=== PATIENT | female | born 1960 | race American Indian/Alaskan Native ===

== ENCOUNTER 2017-03-12 12:15 | Emergency (ER) | payer SELFPAY ==
[2017-03-12] MEDS ORDERED: PROVENTIL IH ONE (14:49)
[2017-03-12] MEDS ORDERED: DELTASONE PO ONE (14:49)
--- NOTE | 2017-03-12 14:55 | Emergency Department Report ---
ED General Adult HPI - General Chief complaint: Upper Respiratory Infection Stated complaint: FLU LIKE SYMPTOMS Time Seen by Provider: 03/12/17 14:41 Source: patient Mode of arrival: Ambulatory Limitations: No Limitations - History of Present Illness Onset/Timin -: Sudden, week(s) Location: head, chest, back Severity scale (0 -10): 4 Quality: aching Consistency: constant Improves with: none Worsens with: movement, other (activity) Associated Symptoms: cough, fever/chills, headaches, loss of appetite, malaise - Related Data Previous Rx's Medication Instructions Recorded Last Taken Type ALBUTEROL Inhaler [ProAir HFA 2 puff IH QID PRN #1 inhalation 03/12/17 Unknown Rx Inhaler] Azithromycin [Zithromax Z-JUAN] 0 mg PO DAILY #6 tab 03/12/17 Unknown Rx Benzonatate [Tessalon Perles] 100 mg PO Q8HR PRN #30 capsule 03/12/17 Unknown Rx Ibuprofen 800 mg PO TID PRN #30 tablet 03/12/17 Unknown Rx predniSONE [Deltasone] 40 mg PO QDAY #10 tab 03/12/17 Unknown Rx Allergies Allergy/AdvReac Type Severity Reaction Status Date / Time codeine Allergy Rash Verified 03/12/17 12:22 diphenhydramine Allergy Rash Verified 03/12/17 12:22 [From Benadryl] ED Review of Systems ROS: Stated complaint: FLU LIKE SYMPTOMS Other details as noted in HPI Constitutional: chills, fever, malaise Eyes: denies: eye pain, eye discharge, vision change ENT: ear pain, throat pain, congestion Respiratory: cough, wheezing Cardiovascular: denies: chest pain, palpitations Endocrine: no symptoms reported Gastrointestinal: nausea. denies: abdominal pain, vomiting, diarrhea, constipation, hematemesis, melena, hematochezia Genitourinary: denies: urgency, dysuria, discharge Musculoskeletal: back pain. denies: joint swelling, arthralgia Skin: denies: rash, lesions Neurological: headache. denies: numbness, paresthesias, confusion, abnormal gait, vertigo Psychiatric: denies: anxiety, depression Hematological/Lymphatic: denies: easy bleeding, easy bruising ED Past Medical Hx - Past Medical History Hx Hypertension: Yes Additional medical history: Hypothyroidism - Surgical History Past Surgical History?: Yes Additional Surgical History: hysterectomy - Social History Smoking Status: Current Every Day Smoker Substance Use Type: None - Medications Home Medications: Home Medications Medication Instructions Recorded Confirmed Last Taken Type ALBUTEROL Inhaler [ProAir HFA 2 puff IH QID PRN #1 inhalation 03/12/17 Unknown Rx Inhaler] Azithromycin [Zithromax Z-JUAN] 0 mg PO DAILY #6 tab 03/12/17 Unknown Rx Benzonatate [Tessalon Perles] 100 mg PO Q8HR PRN #30 capsule 03/12/17 Unknown Rx Ibuprofen 800 mg PO TID PRN #30 tablet 03/12/17 Unknown Rx predniSONE [Deltasone] 40 mg PO QDAY #10 tab 03/12/17 Unknown Rx ED Physical Exam - General Limitations: No Limitations General appearance: alert - Head Head exam: Present: atraumatic, normocephalic - Eye Eye exam: Present: normal appearance, PERRL, EOMI Pupils: Present: normal accommodation - Expanded ENT Exam Expanded TM/Canal exam: Erythema: Right TM, Canal Tenderness: Right TM Throat exam: Positive: tonsillar erythema (moderate erythema mild swelling no abscess no lesions no exudate, no stridor ), tonsillomegaly, other. Negative: tonsillar exudate, R peritonsillar mass, L peritonsillar mass - Neck Neck exam: Present: normal inspection, full ROM. Absent: tenderness, lymphadenopathy, thyromegaly - Respiratory Respiratory exam: Present: normal lung sounds bilaterally, wheezes, chest wall tenderness. Absent: respiratory distress, rales, rhonchi, stridor - Cardiovascular Cardiovascular Exam: Present: regular rate, normal rhythm, normal heart sounds. Absent: systolic murmur, diastolic murmur, rubs, gallop - GI/Abdominal GI/Abdominal exam: Present: soft, normal bowel sounds. Absent: distended, tenderness, guarding, rebound, rigid, mass, bruit, hernia - Rectal Rectal exam: Present: deferred - Extremities Exam Extremities exam: Present: normal inspection - Back Exam Back exam: Present: normal inspection, full ROM. Absent: tenderness, CVA tenderness (R), CVA tenderness (L), muscle spasm, paraspinal tenderness, vertebral tenderness, rash noted - Neurological Exam Neurological exam: Present: alert, oriented X3, CN II-XII intact, normal gait, reflexes normal - Psychiatric Psychiatric exam: Present: normal affect, normal mood - Skin Skin exam: Present: warm, dry, intact, normal color. Absent: rash ED Course Vital Signs 03/12/17 12:22 Temperature 98.8 F Pulse Rate 91 H Respiratory 20 Rate Blood Pressure 149/70 O2 Sat by Pulse 100 Oximetry ED Medical Decision Making - Lab Data Result diagrams: 03/12/17 15:04 03/12/17 15:04 Laboratory Tests 03/12/17 03/12/17 03/12/17 15:04 15:04 15:18 WBC 6.0 RBC 3.18 L Hgb 7.5 L Hct 25.1 L MCV 79 MCH 24 L MCHC 30 RDW 16.1 H Plt Count 358 Lymph % (Auto) 30.0 Slope % (Auto) 6.0 Eos % (Auto) 0.7 Baso % (Auto) 0.9 Lymph # 1.8 Slope # 0.4 Eos # 0.0 Baso # 0.1 Seg Neutrophils % 62.4 Seg Neutrophils # 3.8 Sodium 138 Potassium 4.4 Chloride 99.6 Carbon Dioxide 25 Anion Gap 18 BUN 13 Creatinine 1.0 Estimated GFR > 60 BUN/Creatinine Ratio 13 Glucose 156 H Calcium 9.3 Total Bilirubin 0.20 AST 18 ALT 16 Alkaline Phosphatase 50 Total Protein 7.0 Albumin 4.4 Albumin/Globulin Ratio 1.7 Urine Color Yellow Urine Turbidity Clear Urine pH 5.0 Ur Specific Pinson 1.019 Urine Protein <15 mg/dl Urine Glucose (UA) Neg Urine Ketones Neg Urine Blood Neg Urine Nitrite Neg Urine Bilirubin Neg Urine Urobilinogen < 2.0 Ur Leukocyte Esterase Tr Urine WBC (Auto) 2.0 Urine RBC (Auto) 2.0 U Epithel Cells (Auto) 2.0 Urine Mucus Few - Radiology Data Radiology results: report reviewed, image reviewed normal chest xray no infiltrate no opacities - Medical Decision Making Patient is a 56-year-old [place] female who presents for cough fever chills generalized malaise and nausea without vomiting headache , head and chest congestion and right ear pain 1 week, cough productive thick yellow-green , confirms family member with pneumonia patient states some symptoms are exacerbated by activityj, exam: Patient appears ill. Uncomfortable denies chest pain at this time there is no shortness of breath ENT exam right sided TM erythema and pain nose boggy no polyps no obstruction clear postnasal drip , pharynx moderate erythema, no lesions no exudate mild swelling no tonsillar abscess stridor lungs mild expiratory wheezing no respiratory distress s or muscle use abdomen soft nontender no rebound no fluid shift no bruits no hernia no CVA tenderness with subjective back pain with note cxr: normal , cmp: normal , cbc: h/h 7.5 / 25.5 pt state hx of anemia unknown type , ua: normal , Plan: albuterol neb, prednisone, zpack, cheratussin, ibuprofen pt will follow up with Dr. Castellon for follow and follow up with possible anemia , pt is currently a/o x 3 ambulatory gait steady through entire ed without increased sob or wheezing pt for dc to self in stable condtion at this time. Critical care attestation.: If time is entered above; I have spent that time in minutes in the direct care of this critically ill patient, excluding procedure time. ED Disposition Clinical Impression: Bronchitis URI (upper respiratory infection) Qualifiers: URI type: unspecified viral URI Qualified Code(s): J06.9 - Acute upper respiratory infection, unspecified; B97.89 - Other viral agents as the cause of diseases classified elsewhere; B97.89 - Other viral agents as the cause of diseases classified elsewhere Disposition: DC-01 TO HOME OR SELFCARE Is pt being admited?: No Does the pt Need Aspirin: No Condition: Good Instructions: Chronic Bronchitis (ED) Prescriptions: ALBUTEROL Inhaler [ProAir HFA Inhaler] 2 puff IH QID PRN #1 inhalation PRN Reason: Shortness Of Breath Azithromycin [Zithromax Z-JUAN] 0 mg PO DAILY #6 tab Benzonatate [Tessalon Perles] 100 mg PO Q8HR PRN #30 capsule PRN Reason: Cough Ibuprofen 800 mg PO TID PRN #30 tablet PRN Reason: pain and fever predniSONE [Deltasone] 40 mg PO QDAY #10 tab Referrals: JODI MOSER MD [Primary Care Provider] - 3-5 Days Forms: Work/School Release Form(ED) Time of Disposition: 16:56
--- NOTE | 2017-03-12 15:14 | XRay Report ---
ROUTINE CHEST, TWO VIEWS: HISTORY: Productive cough. The trachea, heart, mediastinal contour, lung varela and bony thorax are unremarkable. IMPRESSION: Unremarkable chest x-ray.
[2017-03-12 16:00] LABS: Basophils # (Auto) 0.1 K/mm3 (0.0-0.1); Basophils % (Auto) 0.9 % (0.0-1.8); Eosinophils % (Auto) 0.7 % (0.0-4.3); Hematocrit 25.1 % (30.3-42.9); Hemoglobin 7.5 gm/dl (10.1-14.3); Lymphocytes # (Auto) 1.8 K/mm3 (1.2-5.4); Mean Corpuscular HGB Conc 30 % (30-34); Mean Corpuscular Volume 79 fl (79-97); Monocytes # (Auto) 0.4 K/mm3 (0.0-0.8); Platelet Count 358 K/mm3 (140-440); Red Blood Count 3.18 M/mm3 (3.65-5.03); Red Cell Distribution Width 16.1 % (13.2-15.2)
[2017-03-12 16:01] LABS: Bilirubin,Urine NEG (Negative); Blood,Urine NEG (Negative); Color,Urine Yellow (Yellow); Mucus,Urine FEW /HPF; Nitrite,Urine NEG (Negative); Protein,Urine <15 mg/dL mg/dL (Negative); Urobilinogen,Urine < 2.0 mg/dL (<2.0)
[2017-03-12 16:01] LABS: Mean Corpuscular Hemoglobin 24 pg (28-32)
[2017-03-12 16:15] LABS: Alanine Aminotransferase 16 units/L (7-56); Albumin 4.4 g/dL (3.9-5); BUN/Creatinine Ratio 13; Blood Urea Nitrogen 13 mg/dL (7-17); Calcium 9.3 mg/dL (8.4-10.2); Hemolysis Index 0
[2017-03-12 17:03] VITALS: BP 114/73
== END 2017-03-12 17:03 | disposition home or self-care (01) ==
LOC: ED 12:15
DX: J40 Bronchitis, not specified as acute or chronic (principal); J06.9 Acute upper respiratory infection, unspecified; B97.89 Other viral agents as the cause of diseases classified elsewhere; I10 Essential (primary) hypertension; E03.9 Hypothyroidism, unspecified; F17.200 Nicotine dependence, unspecified, uncomplicated; Z88.6 Allergy status to analgesic agent
CPT/HCPCS: 36415; 71046; 80053; 81001; 85025; 94640; 99284; J7512

== ENCOUNTER 2017-03-24 07:54 | Inpatient (IN) | payer OTHER ==
[2017-03-24 08:40] LABS: Basophils # (Auto) 0.1 K/mm3 (0.0-0.1); Eosinophils % (Auto) 0.4 % (0.0-4.3); Hematocrit 23.1 % (30.3-42.9); Hemoglobin 6.9 gm/dl (10.1-14.3); Lymphocytes # (Auto) 1.3 K/mm3 (1.2-5.4); Lymphocytes % (Auto) 17.3 % (13.4-35.0); Mean Corpuscular HGB Conc 30 % (30-34); Mean Corpuscular Volume 75 fl (79-97); Monocytes # (Auto) 0.5 K/mm3 (0.0-0.8); Monocytes % (Auto) 6.6 % (0.0-7.3); Platelet Count 351 K/mm3 (140-440); Red Blood Count 3.08 M/mm3 (3.65-5.03); Red Cell Distribution Width 16.4 % (13.2-15.2)
[2017-03-24 08:47] LABS: Mean Corpuscular Hemoglobin 22 pg (28-32)
--- NOTE | 2017-03-24 09:14 | XRay Report ---
ROUTINE CHEST, TWO VIEWS: HISTORY: Shortness of breath. The trachea, heart, mediastinal contour, lung varela and bony thorax are unremarkable. Given differences in the level of inspiration, no change since 03/12/17. IMPRESSION: Unremarkable chest x-ray.
[2017-03-24 09:46] LABS: BUN/Creatinine Ratio 17; Blood Urea Nitrogen 19 mg/dL (7-17); Calcium 9.5 mg/dL (8.4-10.2); Hemolysis Index 2
--- NOTE | 2017-03-24 10:42 | Emergency Department Report ---
ED Shortness of Breath HPI - General Chief Complaint: Dyspnea/Respdistress Stated Complaint: SOB Time Seen by Provider: 03/24/17 10:05 Source: patient Mode of arrival: Ambulatory Limitations: No Limitations - History of Present Illness Initial Comments: Patient is a 56-year-old female that presents emergency room with complaints of shortness of breath 2 weeks and chest pain 2 days. She states she was seen here on 03/12/2017 for bronchitis and upper respiratory infection and given antibiotics and steroids. She states that she is not feeling any better after outpatient treatment and the chest pain or shortness of breath or worsening. Patient states that she is now having dyspnea on exertion and can only walk small distances without becoming very short of breath. Patient States that the chest pain is substernal and radiates to her back. Patient denies fever and chills. Denies diaphoresis and anxiety.. Patient states she has not smoked for the last 2 weeks but normally smokes about a pack a day. He has a past medical history of hypertension and hypothyroidism however she does not take any medications. MD Complaint: shortness of breath, chest pain, pain with inspiration -: Gradual, week(s) (2 weeks) Radiation: back Severity: severe Pain Scale: 9 Quality: throbbing, sharp Consistency: constant Improves With: rest, bronchodilators Worsens With: lying flat, exertion, movement, coughing, inspiration Context: recent URI Associated Symptoms: chest pain, pain with inspiration, cough, sputum production Treatments Prior to Arrival: none - Related Data Home Oxygen Therapy: No Home Medications Medication Instructions Recorded Confirmed Last Taken No Known Home Medications [No 03/24/17 03/24/17 Unknown Reported Home Medications] Allergies Allergy/AdvReac Type Severity Reaction Status Date / Time codeine Allergy Rash Verified 03/12/17 12:22 diphenhydramine Allergy Rash Verified 03/12/17 12:22 [From Benadryl] ED Review of Systems ROS: Stated complaint: SOB Other details as noted in HPI Comment: All other systems reviewed and negative Constitutional: denies: chills, fever Eyes: denies: eye pain, eye discharge, vision change ENT: denies: ear pain, throat pain Respiratory: cough, shortness of breath, SOB with exertion, SOB at rest. denies : wheezing Cardiovascular: chest pain, dyspnea on exertion. denies: palpitations Endocrine: no symptoms reported Gastrointestinal: denies: abdominal pain, nausea, diarrhea Genitourinary: denies: urgency, dysuria, discharge Musculoskeletal: back pain. denies: joint swelling, arthralgia Skin: denies: rash, lesions Neurological: denies: headache, weakness, paresthesias Psychiatric: denies: anxiety, depression Hematological/Lymphatic: denies: easy bleeding, easy bruising ED Past Medical Hx - Past Medical History Previous Medical History?: Yes Hx Hypertension: Yes Additional medical history: Hypothyroidism - Surgical History Past Surgical History?: Yes Additional Surgical History: hysterectomy - Family History Family history: hypertension - Social History Smoking Status: Current Some Day Smoker Substance Use Type: None - Medications Home Medications: Home Medications Medication Instructions Recorded Confirmed Last Taken Type No Known Home Medications [No 03/24/17 03/24/17 Unknown History Reported Home Medications] ED Physical Exam - General Limitations: No Limitations General appearance: alert, in no apparent distress - Head Head exam: Present: atraumatic, normocephalic - Eye Eye exam: Present: normal appearance - ENT ENT exam: Present: mucous membranes moist - Neck Neck exam: Present: normal inspection - Respiratory Respiratory exam: Present: normal lung sounds bilaterally. Absent: respiratory distress - Cardiovascular Cardiovascular Exam: Present: regular rate, normal rhythm. Absent: systolic murmur, diastolic murmur, rubs, gallop - GI/Abdominal GI/Abdominal exam: Present: soft, normal bowel sounds - Extremities Exam Extremities exam: Present: normal inspection - Back Exam Back exam: Present: normal inspection - Neurological Exam Neurological exam: Present: alert, oriented X3 - Psychiatric Psychiatric exam: Present: normal affect, normal mood - Skin Skin exam: Present: warm, dry, intact, normal color. Absent: rash ED Course Vital Signs 03/24/17 03/24/17 03/24/17 07:58 10:53 11:00 Temperature 97.5 F L Pulse Rate 87 68 73 Respiratory 18 17 21 Rate Blood Pressure 124/70 137/94 O2 Sat by Pulse 99 99 Oximetry 03/24/17 11:16 Temperature Pulse Rate 68 Respiratory 23 Rate Blood Pressure 142/89 O2 Sat by Pulse 99 Oximetry ED Medical Decision Making - Lab Data Result diagrams: 03/24/17 08:17 03/24/17 08:17 - EKG Data -: EKG Interpreted by Ar EKG shows normal: sinus rhythm Rate: normal - EKG Data Interpretation: no acute changes, normal EKG - Radiology Data Radiology results: report reviewed, image reviewed Normal limits chest x-ray - Medical Decision Making Condition is a 56-year-old female presents emergency room with shortness of breath and chest pain. Consulted hospitalist for admission to rule out ACS and this patient has failed outpatient therapy for bronchitis/URI with the patient. Hospitalist agreed to admit. - Differential Diagnosis bronchitis, uri, cp, sob. chf Critical care attestation.: If time is entered above; I have spent that time in minutes in the direct care of this critically ill patient, excluding procedure time. ED Disposition Clinical Impression: Chest pain, Shortness of breath, Bronchitis Disposition: OP ADMIT IP TO THIS HOSP Is pt being admited?: Yes Does the pt Need Aspirin: No Condition: Serious Time of Disposition: 11:42
[2017-03-24] MEDS ORDERED: ASPIRIN PO ONE (11:37)
[2017-03-24 11:39] LABS: Creatine Kinase MB 1.8 ng/mL (0.0-4.0)
[2017-03-24] MEDS ORDERED: ROCEPHIN/NS 1 GM/50 ML 1 GM/50 ML BAG IV ONE (11:41)
[2017-03-24] MEDS ORDERED: cefTRIAXone 1 GM in NACL 0.9% 20 ML IV ONE (12:00)
[2017-03-24] MEDS: TYLENOL PO PRN (15:45)
--- NOTE | 2017-03-24 18:16 | History and Physical Report ---
History of Present Illness Date of examination: 03/24/17 Date of admission: 03/24/17 11:44 Chief complaint: Chief complaint:.cough and wheezing for 2 weeks History of present illness: History of Present Illness: 56-year-old female comes in for increasing shortness of breath of 2 weeks' duration and chest pain of 2 days' duration. Patient also has cough productive of mucoid to yellow sputum. Patient was seen here on 03/12/2017 and was treated as acute bronchitis. No improvement. Has dyspnea on exertion and can walk only short distances. Also chest pain as a substernal which is radiating to the back. No fever no chills Chest pain more on coughing. and with deep inspiration.Also bright red blood per rectum off and on for the last 4 days. No syncope or lightheadedness. Patient attributes it to possible hemorrhoids. No previous episodes of bright red blood per rectum. Past Medical History Previous Medical History?: Yes Hx Hypertension: Yes Additional medical history: Hypothyroidism Surgical History Past Surgical History?: Yes Additional Surgical History: hysterectomy Family History Family history: hypertension Social History Smoking Status: Current Some Day Smoker Substance Use Type: None Medications Home Medications: Review of Systems Stated complaint: SOB Other details as noted in HPI Comment: All other systems reviewed and negative Constitutional: denies: chills, fever Eyes: denies: eye pain, eye discharge, vision change ENT: denies: ear pain, throat pain Respiratory: cough, shortness of breath, SOB with exertion, SOB at rest. denies : wheezing Cardiovascular: chest pain, dyspnea on exertion. denies: palpitations Endocrine: no symptoms reported Gastrointestinal: bright red blood per rectum. Since 4 days Genitourinary: denies: urgency, dysuria, discharge Musculoskeletal: back pain. denies: joint swelling, arthralgia Skin: denies: rash, lesions Neurological: denies: headache, weakness, paresthesias Psychiatric: denies: anxiety, depression Hematological/Lymphatic: denies: easy bleeding, easy bruising Medications and Allergies Allergies Allergy/AdvReac Type Severity Reaction Status Date / Time codeine Allergy Rash Verified 03/12/17 12:22 diphenhydramine Allergy Rash Verified 03/12/17 12:22 [From Benadryl] Home Medications Medication Instructions Recorded Confirmed Last Taken Type No Known Home Medications [No 01/14/18 01/14/18 Unknown History Reported Home Medications] Active Meds: Active Medications Acetaminophen (Tylenol) 650 mg PO Q4H PRN PRN Reason: Pain, Mild (1-3) Last Admin: 03/24/17 15:45 Dose: 650 mg Exam - Constitutional Vitals: Temp Pulse Resp BP Pulse Ox 97.5 F L 81 20 147/75 100 03/24/17 07:58 03/24/17 14:00 03/24/17 13:00 03/24/17 13:00 03/24/17 13:00 General appearance: Present: no acute distress ( uterineis a 50), mild distress , well-nourished - EENT Eyes: Present: PERRL ENT: hearing intact, clear oral mucosa - Neck Neck: Present: supple, normal ROM - Respiratory Respiratory effort: normal Respiratory: bilateral: CTA, rhonchi, wheezing - Cardiovascular Heart rate: 80 Rhythm: regular Heart Sounds: Present: S1 & S2. Absent: rub, click - Extremities Extremities: pulses symmetrical, No edema Peripheral Pulses: within normal limits - Abdominal General gastrointestinal: Present: soft, non-tender, non-distended, normal bowel sounds Female genitourinary: Present: normal - Rectal Rectal Exam: deferred - Integumentary Integumentary: Present: clear, warm, dry - Musculoskeletal Musculoskeletal: gait normal, strength equal bilaterally - Psychiatric Psychiatric: appropriate mood/affect, intact judgment & insight - Neurologic Neurologic: CNII-XII intact, moves all extremities - Allied Health Allied health notes reviewed: nursing, case management Results - Labs CBC & Chem 7: 03/24/17 19:27 03/24/17 08:17 Labs: Laboratory Last Values WBC 7.6 K/mm3 (4.5-11.0) 03/24/17 08:17 RBC 3.08 M/mm3 (3.65-5.03) L 03/24/17 08:17 Hgb 6.9 gm/dl (10.1-14.3) L 03/24/17 08:17 Hct 23.1 % (30.3-42.9) L 03/24/17 08:17 MCV 75 fl (79-97) L 03/24/17 08:17 MCH 22 pg (28-32) L 03/24/17 08:17 MCHC 30 % (30-34) 03/24/17 08:17 RDW 16.4 % (13.2-15.2) H 03/24/17 08:17 Plt Count 351 K/mm3 (140-440) 03/24/17 08:17 Lymph % (Auto) 17.3 % (13.4-35.0) 03/24/17 08:17 [place] % (Auto) 6.6 % (0.0-7.3) 03/24/17 08:17 Eos % (Auto) 0.4 % (0.0-4.3) 03/24/17 08:17 Baso % (Auto) 1.0 % (0.0-1.8) 03/24/17 08:17 Lymph # 1.3 K/mm3 (1.2-5.4) 03/24/17 08:17 [place] # 0.5 K/mm3 (0.0-0.8) 03/24/17 08:17 Eos # 0.0 K/mm3 (0.0-0.4) 03/24/17 08:17 Baso # 0.1 K/mm3 (0.0-0.1) 03/24/17 08:17 Seg Neutrophils % 74.7 % (40.0-70.0) H 03/24/17 08:17 Seg Neutrophils # 5.7 K/mm3 (1.8-7.7) 03/24/17 08:17 D-Dimer 173.61 ng/mlDDU (0-234) 03/24/17 11:09 Sodium 149 mmol/L (137-145) H 03/24/17 08:17 Potassium 4.6 mmol/L (3.6-5.0) 03/24/17 08:17 Chloride 108.5 mmol/L (98-107) H 03/24/17 08:17 Carbon Dioxide 20 mmol/L (22-30) L 03/24/17 08:17 Anion Gap 25 mmol/L 03/24/17 08:17 BUN 19 mg/dL (7-17) H 03/24/17 08:17 Creatinine 1.1 mg/dL (0.7-1.2) 03/24/17 08:17 Estimated GFR > 60 ml/min 03/24/17 08:17 BUN/Creatinine Ratio 17 % 03/24/17 08:17 Glucose 95 mg/dL (65-100) 03/24/17 08:17 Calcium 9.5 mg/dL (8.4-10.2) 03/24/17 08:17 Total Creatine Kinase 141 units/L (30-135) H 03/24/17 11:09 CK-MB (CK-2) 1.8 ng/mL (0.0-4.0) 03/24/17 11:09 CK-MB (CK-2) Rel Index 1.2 (0-4) 03/24/17 11:09 Troponin T < 0.010 ng/mL (0.00-0.029) 03/24/17 11:09 NT-Pro-B Natriuret Pep 168.5 pg/mL (0-900) 03/24/17 11:09 - Imaging and Cardiology EKG: report reviewed (normal sinus rhythm and LVH repolarization abnormalities) Chest x-ray: report reviewed (no acute findings no acute findings) Assessment and Plan Advance Directives: Yes (full code) VTE prophylaxis?: Chemical Plan of care discussed with patient/family: Yes - Patient Problems (1) COPD (chronic obstructive pulmonary disease) with acute bronchitis Current Visit: Yes Status: Acute Plan to address problem: patient started on duo nebs Solu-Medrol and IV Levaquin (2) BRBPR (bright red blood per rectum) Current Visit: Yes Status: Acute Plan to address problem: [id number] she has been having bright red blood per rectum off and on for the last 4 days. She attributes it to hemorrhoids also feels weaker.GI consult requested. Check hemoglobin and hematocrit every 8 hours 3 Protonix IV 40 mg every 12 started. (3) Chest pain Current Visit: Yes Status: Acute Qualifiers: Chest pain type: chest pain on breathing Qualified Code(s): R07.1 - Chest pain on breathing; R07.81 - Pleurodynia Plan to address problem: chest pain probably secondary to pleurisy. Will get Lexiscan because of the age and risk factors (4) HTN (hypertension) Current Visit: Yes Status: Chronic Qualifiers: Hypertension type: essential hypertension Qualified Code(s): I10 - Essential (primary) hypertension Plan to address problem: No Home meds Will start on Losartan 100 mg po qd (5) Hypothyroidism (acquired) Current Visit: Yes Status: Chronic Plan to address problem: patient initiated on Synthroid 125 mcg by mouth daily. Patient not taking Synthroid for 2 weeks. TSH not ordered because it is going to be high. (6) Anemia Current Visit: Yes Status: Chronic Qualifiers: Anemia type: iron deficiency Plan to address problem: check iron levels and B12 and folic acid.transfuse 1 unit of packed red blood . (7) Acute hypernatremia Current Visit: Yes Status: Acute Plan to address problem: mild secondary to volume depletion. Patient encouraged to drink plenty of water. (8) DVT prophylaxis Current Visit: Yes Status: Acute Plan to address problem: Lovenox 40 mg SQ Qd
[2017-03-24] MEDS ORDERED: MILK OF MAGNESIA PO PRN ×2 (19:16→19:23)
[2017-03-24] MEDS ORDERED: DULCOLAX PR PRN ×2 (19:16→19:23)
[2017-03-24] MEDS ORDERED: TYLENOL PO PRN ×2 (19:16→19:23)
[2017-03-24] MEDS ORDERED: ZOFRAN IV PRN (19:16)
[2017-03-24] MEDS ORDERED: NACL 0.9% 500 ML 500 ML IV ONE (19:17)
[2017-03-24] MEDS ORDERED: MORPHINE IV PRN (19:23)
[2017-03-24 19:44] LABS: Hematocrit 22.4 % (30.3-42.9); Hemoglobin 6.7 gm/dl (10.1-14.3)
[2017-03-24] MEDS ORDERED: NACL 0.45% 1000 ML 1,000 ML IV SCH (20:00)
[2017-03-24] MEDS ORDERED: DUONEB *Not for PRN Use IH SCH (20:00)
[2017-03-24] MEDS ORDERED: ROCEPHIN/NS 2 GM/100 ML 2 GM/100 ML BAG IV SCH ×2 (20:00)
[2017-03-24 20:16] LABS: % Iron Saturation 3.76 %; Iron 16 ug/dL (37-170); Total Iron Binding Capacity 425 mcg/dL (250-450); Transferrin 368 mg/dl (192-382)
[2017-03-24] MEDS: DUONEB *Not for PRN Use IH SCH (20:48)
[2017-03-24] MEDS: ZITHROMAX 500 MG in NACL 0.9% 250ML 250 ML IV SCH (22:05)
[2017-03-24] MEDS: LOVENOX SUB-Q SCH (22:06)
[2017-03-24] MEDS: COZAAR PO SCH (22:06)
[2017-03-24] MEDS: PROTONIX IV SCH (22:06)
[2017-03-24] MEDS: MORPHINE IV PRN (22:11)
[2017-03-25] MEDS ORDERED: NACL 0.9% 500 ML 500 ML IV ONE (02:00)
[2017-03-25] MEDS: DUONEB *Not for PRN Use IH SCH ×4 (03:45→22:35)
[2017-03-25] MEDS: SYNTHROID PO SCH (05:38)
[2017-03-25 07:17] LABS: Hematocrit 26.7 % (30.3-42.9); Mean Corpuscular HGB Conc 30 % (30-34); Mean Corpuscular Volume 78 fl (79-97); Platelet Count 320 K/mm3 (140-440); Red Blood Count 3.43 M/mm3 (3.65-5.03); Red Cell Distribution Width 17.7 % (13.2-15.2)
[2017-03-25 07:30] LABS: Mean Corpuscular Hemoglobin 23 pg (28-32)
[2017-03-25 07:37] LABS: Alanine Aminotransferase 31 units/L (7-56); Albumin 4.1 g/dL (3.9-5); BUN/Creatinine Ratio 18; Blood Urea Nitrogen 16 mg/dL (7-17); Calcium 8.5 mg/dL (8.4-10.2); Hemolysis Index 1
[2017-03-25] MEDS: MORPHINE IV PRN ×2 (09:26→10:10)
[2017-03-25] MEDS: APRESOLINE IV PRN (09:31)
[2017-03-25] MEDS: cefTRIAXone 2 GM in NACL 0.9% 20 ML IV SCH (09:33)
[2017-03-25] MEDS: COZAAR PO SCH (09:46)
[2017-03-25 09:52] LABS: Total Cells Counted 100
[2017-03-25 09:53] LABS: Band Neutrophils # (Manual) 0.3 K/mm3; Basophils % (Manual) 0 % (0.0-1.8); Eosinophils % (Manual) 0 % (0.0-4.3); Hypochromasia 1+
[2017-03-25 09:56] LABS: Target Cells Few
[2017-03-25 09:57] LABS: Anisocytosis 1+; Spherocytes Few
[2017-03-25 11:24] LABS: Hematocrit 26.3 % (30.3-42.9); Hemoglobin 8.2 gm/dl (10.1-14.3)
[2017-03-25] MEDS ORDERED: LEXISCAN IV ONE ×2 (11:58→12:06)
[2017-03-25] MEDS ORDERED: ZOFRAN ONE (12:34)
[2017-03-25] MEDS: ZOFRAN IV PRN (12:35)
[2017-03-25] MEDS: PROTONIX IV SCH ×2 (13:44→22:40)
--- NOTE | 2017-03-25 14:28 | Gastroenterology Consultation ---
<HERMESFANYFARHANA Sheppard - Last Filed: 03/25/17 14:47> History of Present Illness - Reason for Consult Consult date: 03/25/17 BRBPR Requesting physician: CHANTALE ARIZA - History of Present Illness Patient is a 56 female with PMH of HTN, hypothyroidism, and a recent upper respiratory infection with bronchitis (03/12/2017) who presented to ED with c/o SOB, CP, and productive cough. Chest x-ray was unremarkable. EKG and cardiac enzymes negative. Stress test results pending for today. HGB was found to be 6.9 on admission. GI has been consulted for BRBPR. This afternoon pt was resting in bed w/o acute distress and family at bedside. She admits to continued mild CP described as a pressure and SOB with exertion. She also admits to intermittent rectal bleeding of dark red blood on TP and in toilet after BMs x 3 weeks. Last BM with rectal bleeding was 2 days ago. No active signs of bleeding overnight or this am. Rectal exam revealed brown stool. No hematemesis or melena. Reports a 12lb wt loss since January. Denies abd pain, N /V, dysphagia, diarrhea, or constipation. Last EGD/colonoscopy approximately 10 years ago in October revealed a peptic ulcer per pt. No hx of liver disease. Takes Aleve or Ibuprofen every other day. Fhx of colon cancer with grandfather diagnosed in his 70s. Past History Past Medical History: hypertension, hypothyroidism Past Surgical History: hysterectomy Social history: smoking Family history: hypertension Medications and Allergies Allergies Allergy/AdvReac Type Severity Reaction Status Date / Time codeine Allergy Rash Verified 03/12/17 12:22 diphenhydramine Allergy Rash Verified 03/12/17 12:22 [From Benadryl] Home Medications Medication Instructions Recorded Confirmed Last Taken Type No Known Home Medications [No 03/24/17 03/24/17 Unknown History Reported Home Medications] Active Meds: Active Medications Acetaminophen (Tylenol) 650 mg PO Q4H PRN PRN Reason: Pain, Mild (1-3) Last Admin: 03/24/17 15:45 Dose: 650 mg Albuterol/Ipratropium (Duoneb *Not For Prn Use*) 1 ampul IH Q6HRT RUBEN Last Admin: 03/25/17 13:58 Dose: 1 ampul Bisacodyl (Dulcolax) 10 mg CA QDAY PRN PRN Reason: Constipation unrelieved by MOM Enoxaparin Sodium (Lovenox) 40 mg SUB-Q QDAY@2200 [facility] Last Admin: 03/24/17 22:06 Dose: 40 mg Hydralazine HCl (Apresoline) 5 mg IV Q30MIN PRN PRN Reason: Hypertension Last Admin: 03/25/17 09:31 Dose: 5 mg Azithromycin 500 mg/ Sodium (Chloride) 250 mls @ 250 mls/hr IV Q24H [facility] Last Admin: 03/24/17 22:05 Dose: 250 mls/hr Ceftriaxone Sodium 2 gm/ (Sodium Chloride) 20 mls @ 20 mls/10 min IV Q24HR [facility] Last Admin: 03/25/17 09:33 Dose: 20 mls/10 min Levothyroxine Sodium (Synthroid) 125 mcg PO DAILY@0600 [facility] Last Admin: 03/25/17 05:38 Dose: 125 mcg Losartan Potassium (Cozaar) 100 mg PO QDAY [facility] Last Admin: 03/25/17 09:46 Dose: Not Given Magnesium Hydroxide (Milk Of Magnesia) 30 ml PO Q4H PRN PRN Reason: Constipation Methylprednisolone Sodium Succinate (Solu-Medrol) 40 mg IV Q8HR [facility] Last Admin: 03/25/17 13:44 Dose: 40 mg Morphine Sulfate (Morphine) 2 mg IV Q4H PRN PRN Reason: Pain, Moderate (4-6) Last Admin: 03/25/17 10:10 Dose: 2 mg Morphine Sulfate (Morphine) 4 mg IV Q4H PRN PRN Reason: Pain , Severe (7-10) Ondansetron HCl (Zofran) 4 mg IV Q8H PRN PRN Reason: N/V unrelieved by Reglan Last Admin: 03/25/17 12:35 Dose: 4 mg Oxycodone/Acetaminophen (Percocet 5/325) 1 tab PO Q6H PRN PRN Reason: Pain, Moderate (4-6) Pantoprazole Sodium (Protonix) 40 mg IV BID [facility] Last Admin: 03/25/17 13:44 Dose: 40 mg Review of Systems - Review of Systems All systems: negative Cardiovascular: chest pain Respiratory: shortness of breath Gastrointestinal: BRBPR Exam - Constitutional Vital Signs: Temp Pulse Resp BP Pulse Ox 99.1 F 89 17 177/111 95 03/25/17 08:43 03/25/17 14:00 03/25/17 14:00 03/25/17 09:31 03/25/17 08:43 General appearance: no acute distress, obese - EENT Eyes: PERRL, EOM intact ENT: hearing intact - Respiratory Respiratory: bilateral: diminished (anterior) - Cardiovascular Rhythm: regular Heart Sounds: Present: S1 & S2 - Gastrointestinal General gastrointestinal: Present: soft, non-tender, non-distended, normal bowel sounds Rectal Exam: stool brown - Integumentary Integumentary: Present: warm, dry - Neurologic Neurological: alert and oriented x3 - Labs CBC & Chem 7: 03/25/17 11:15 03/25/17 06:33 Lab Results: Laboratory Results - last 24 hr 03/24/17 03/24/17 03/24/17 19:27 19:27 19:27 WBC RBC Hgb Hct MCV MCH MCHC RDW Plt Count Add Manual Diff Total Counted Seg Neutrophils % Seg Neuts % (Manual) Band Neutrophils % Lymphocytes % (Manual) Reactive Lymphs % (Man) Monocytes % (Manual) Eosinophils % (Manual) Basophils % (Manual) Metamyelocytes % Myelocytes % Promyelocytes % Blast Cells % Nucleated RBC % Seg Neutrophils # Man Band Neutrophils # Lymphocytes # (Manual) Abs React Lymphs (Man) Monocytes # (Manual) Eosinophils # (Manual) Basophils # (Manual) Metamyelocytes # Myelocytes # Promyelocytes # Blast Cells # WBC Morphology Hypersegmented Neuts Hyposegmented Neuts Hypogranular Neuts Smudge Cells Toxic Granulation Toxic Vacuolation Dohle Bodies Pelger-Huet Anomaly Christopher Rods Platelet Estimate Clumped Platelets Plt Clumps, EDTA Large Platelets Giant Platelets Platelet Satelliting Plt Morphology Comment RBC Morphology Dimorphic RBCs Polychromasia Hypochromasia Poikilocytosis Anisocytosis Microcytosis Macrocytosis Spherocytes Pappenheimer Bodies Sickle Cells Target Cells Tear Drop Cells Ovalocytes Helmet Cells [place] Bodies [place] Rings Josué Cells Bite Cells Crenated Cell Elliptocytes Acanthocytes (Spur) Rouleaux Hemoglobin C Crystals Schistocytes Malaria parasites Rd Bodies Hem Pathologist Commnt Sodium Potassium Chloride Carbon Dioxide Anion Gap BUN Creatinine Estimated GFR BUN/Creatinine Ratio Glucose Calcium Iron 16 L TIBC 425 % Saturation 3.76 Transferrin 368 Total Bilirubin AST ALT Alkaline Phosphatase Troponin T < 0.010 Total Protein Albumin Albumin/Globulin Ratio Vitamin B12 466.1 Blood Type O POSITIVE Antibody Screen Negative Crossmatch See Detail 03/24/17 03/25/17 03/25/17 19:27 06:33 06:33 WBC 16.1 H RBC 3.43 L Hgb 6.7 L 8.0 L Hct 22.4 L 26.7 L MCV 78 L MCH 23 L MCHC 30 RDW 17.7 H Plt Count 320 Add Manual Diff Complete Total Counted 100 Seg Neutrophils % Child Care Education Coordinator Seg Neuts % (Manual) 92.0 H Band Neutrophils % 2.0 Lymphocytes % (Manual) 5.0 L Reactive Lymphs % (Man) 0 Monocytes % (Manual) 1.0 Eosinophils % (Manual) 0 Basophils % (Manual) 0 Metamyelocytes % 0 Myelocytes % 0 Promyelocytes % 0 Blast Cells % 0 Nucleated RBC % Not Reportable Seg Neutrophils # Man 14.8 H Band Neutrophils # 0.3 Lymphocytes # (Manual) 0.8 L Abs React Lymphs (Man) 0.0 Monocytes # (Manual) 0.2 Eosinophils # (Manual) 0.0 Basophils # (Manual) 0.0 Metamyelocytes # 0.0 Myelocytes # 0.0 Promyelocytes # 0.0 Blast Cells # 0.0 WBC Morphology Not Reportable Hypersegmented Neuts Not Reportable Hyposegmented Neuts Not Reportable Hypogranular Neuts Not Reportable Smudge Cells Not Reportable Toxic Granulation Not Reportable Toxic Vacuolation Not Reportable Dohle Bodies Not Reportable Pelger-Huet Anomaly Not Reportable Christopher Rods Not Reportable Platelet Estimate Not Reportable Clumped Platelets Not Reportable Plt Clumps, EDTA Not Reportable Large Platelets Not Reportable Giant Platelets Not Reportable Platelet Satelliting Not Reportable Plt Morphology Comment Not Reportable RBC Morphology Not Reportable Dimorphic RBCs Not Reportable Polychromasia Not Reportable Hypochromasia 1+ Poikilocytosis Not Reportable Anisocytosis 1+ Microcytosis Not Reportable Macrocytosis Not Reportable Spherocytes Few Pappenheimer Bodies Not Reportable Sickle Cells Not Reportable Target Cells Few Tear Drop Cells Not Reportable Ovalocytes Not Reportable Helmet Cells Not Reportable [place] Bodies Not Reportable [place] Rings Not Reportable [place] Cells Not Reportable Bite Cells Not Reportable Crenated Cell Not Reportable Elliptocytes Not Reportable Acanthocytes (Spur) Not Reportable Rouleaux Not Reportable Hemoglobin C Crystals Not Reportable Schistocytes Not Reportable Malaria parasites Not Reportable Rd Bodies Not Reportable Hem Pathologist Commnt No Sodium 140 D Potassium 4.4 Chloride 103.5 Carbon Dioxide 20 L Anion Gap 21 BUN 16 Creatinine 0.9 Estimated GFR > 60 BUN/Creatinine Ratio 18 Glucose 140 H Calcium 8.5 Iron TIBC % Saturation Transferrin Total Bilirubin < 0.20 AST 28 ALT 31 Alkaline Phosphatase 53 Troponin T Total Protein 7.1 Albumin 4.1 Albumin/Globulin Ratio 1.4 Vitamin B12 Blood Type Antibody Screen Crossmatch 03/25/17 03/25/17 03/25/17 06:50 11:15 11:44 WBC RBC Hgb 8.2 L Hct 26.3 L MCV MCH MCHC RDW Plt Count Add Manual Diff Total Counted Seg Neutrophils % Seg Neuts % (Manual) Band Neutrophils % Lymphocytes % (Manual) Reactive Lymphs % (Man) Monocytes % (Manual) Eosinophils % (Manual) Basophils % (Manual) Metamyelocytes % Myelocytes % Promyelocytes % Blast Cells % Nucleated RBC % Seg Neutrophils # Man Band Neutrophils # Lymphocytes # (Manual) Abs React Lymphs (Man) Monocytes # (Manual) Eosinophils # (Manual) Basophils # (Manual) Metamyelocytes # Myelocytes # Promyelocytes # Blast Cells # WBC Morphology Hypersegmented Neuts Hyposegmented Neuts Hypogranular Neuts Smudge Cells Toxic Granulation Toxic Vacuolation Dohle Bodies Pelger-Huet Anomaly Christopher Rods Platelet Estimate Clumped Platelets Plt Clumps, EDTA Large Platelets Giant Platelets Platelet Satelliting Plt Morphology Comment RBC Morphology Dimorphic RBCs Polychromasia Hypochromasia Poikilocytosis Anisocytosis Microcytosis Macrocytosis Spherocytes Pappenheimer Bodies Sickle Cells Target Cells Tear Drop Cells Ovalocytes Helmet Cells [place] Bodies [place] Rings [place] Cells Bite Cells Crenated Cell Elliptocytes Acanthocytes (Spur) Rouleaux Hemoglobin C Crystals Schistocytes Malaria parasites Rd Bodies Hem Pathologist Commnt Sodium Potassium Chloride Carbon Dioxide Anion Gap BUN Creatinine Estimated GFR BUN/Creatinine Ratio Glucose Calcium Iron TIBC % Saturation Transferrin Total Bilirubin AST ALT Alkaline Phosphatase Troponin T < 0.010 < 0.010 Total Protein Albumin Albumin/Globulin Ratio Vitamin B12 Blood Type Antibody Screen Crossmatch Assessment and Plan 1.GI bleed 2.BRBPR 3.anemia 4.COPD with acute bronchitis 5.CP 6.hypothyroidism -chest x-ray unremarkable -EKG and cardiac enzymes negative -stress test -results pending -iron 16 -HGB 8.2-s/p transfusion of 1 unit PRBCs -continue to monitor H/H and transfuse as needed -no active signs of bleeding overnight or this am -hold blood thinning medications -continue PPI -etiology unclear -recommend pt have an EGD/colonoscopy once medically stable (possibly on Saturday pending stress results) -start on clear liquid tomorrow -continue supportive care -apryl follow <YUSEF CHAPIN - Last Filed: 03/26/17 10:22> Medications and Allergies Active Meds: Active Medications Acetaminophen (Tylenol) 650 mg PO Q4H PRN PRN Reason: Pain, Mild (1-3) Last Admin: 03/25/17 15:12 Dose: 650 mg Albuterol/Ipratropium (Duoneb *Not For Prn Use*) 1 ampul IH Q6HRT [facility] Last Admin: 03/26/17 08:25 Dose: Not Given Bisacodyl (Dulcolax) 10 mg CA QDAY PRN PRN Reason: Constipation unrelieved by MOM Enoxaparin Sodium (Lovenox) 40 mg SUB-Q QDAY@2200 [facility] Last Admin: 03/25/17 22:39 Dose: 40 mg Hydralazine HCl (Apresoline) 5 mg IV Q30MIN PRN PRN Reason: Hypertension Last Admin: 03/25/17 09:31 Dose: 5 mg Hydralazine HCl (Apresoline) 50 mg PO Q8HR [facility] Last Admin: 03/26/17 06:04 Dose: 50 mg Azithromycin 500 mg/ Sodium (Chloride) 250 mls @ 250 mls/hr IV Q24H [facility] Last Admin: 03/25/17 22:39 Dose: 250 mls/hr Ceftriaxone Sodium 2 gm/ (Sodium Chloride) 20 mls @ 20 mls/10 min IV Q24HR [facility] Last Admin: 03/25/17 09:33 Dose: 20 mls/10 min Levothyroxine Sodium (Synthroid) 125 mcg PO DAILY@0600 [facility] Last Admin: 03/26/17 06:05 Dose: 125 mcg Losartan Potassium (Cozaar) 100 mg PO QDAY [facility] Last Admin: 03/25/17 09:46 Dose: Not Given Magnesium Hydroxide (Milk Of Magnesia) 30 ml PO Q4H PRN PRN Reason: Constipation Methylprednisolone Sodium Succinate (Solu-Medrol) 40 mg IV Q8HR [facility] Last Admin: 03/26/17 06:05 Dose: 40 mg Morphine Sulfate (Morphine) 2 mg IV Q4H PRN PRN Reason: Pain, Moderate (4-6) Last Admin: 03/25/17 10:10 Dose: 2 mg Morphine Sulfate (Morphine) 4 mg IV Q4H PRN PRN Reason: Pain , Severe (7-10) Ondansetron HCl (Zofran) 4 mg IV Q8H PRN PRN Reason: N/V unrelieved by Lemuel Last Admin: 03/25/17 12:35 Dose: 4 mg Oxycodone/Acetaminophen (Percocet 5/325) 1 tab PO Q6H PRN PRN Reason: Pain, Moderate (4-6) Pantoprazole Sodium (Protonix) 40 mg IV BID [facility] Last Admin: 03/25/17 22:40 Dose: 40 mg Exam - Constitutional Vital Signs: Temp Pulse Resp BP Pulse Ox 98.7 F 73 16 148/79 98 03/26/17 08:51 03/26/17 08:51 03/26/17 08:51 03/26/17 08:51 03/26/17 08:51 - Labs CBC & Chem 7: 03/26/17 03:25 03/25/17 06:33 Lab Results: Laboratory Results - last 24 hr 03/25/17 03/25/17 03/26/17 11:15 11:44 03:25 Hgb 8.2 L 7.9 L Hct 26.3 L 26.1 L Troponin T < 0.010
--- NOTE | 2017-03-25 14:43 | Progress Note ---
Assessment and Plan /BRBPR (bright red blood per rectum) Protonix IV 40 mg every 12 started. -HGB 8.2-s/p transfusion of 1 unit PRBCs -continue to monitor H/H and transfuse as needed -no active signs of bleeding overnight or this am -pt will have an EGD/colonoscopy once medically stable (possibly on Saturday pending stress results) / Anemia Due to GI loss likely check iron levels and B12 and folic acid. s/p transfusion of 1 unit of packed red blood . /COPD (chronic obstructive pulmonary disease) with acute bronchitis patient started on duo nebs Solu-Medrol and IV Levaquin /Chest pain chest pain probably secondary to pleurisy. s/p Lexiscan today /HTN (hypertension) Will cont on Losartan 100 mg po qd /Hypothyroidism (acquired) patient initiated on Synthroid 125 mcg by mouth daily. Patient not taking Synthroid for 2 weeks. /DVT prophylaxis SCD Hospitalist Physical exam: GENERAL: well-developed and obese AAF lying on bed appeared to be in no discomfort. HEENT: Normocephalic. Atraumatic. No conjunctival congestion or icterus. Patient has moist mucous membranes. NECK: Supple. Trachea midline. CHEST/LUNGS: Clear to auscultated bilaterally, breathing nonlabored. No wheezes crackles or rhonchi. HEART/CARDIOVASCULAR: Regular in rate and rhythm. S1 and S2 positive. ABDOMEN: Abdomen is soft, nontender. Patient has normal bowel sounds. SKIN: There is no rash. Warm and dry. NEURO: No focal motor deficit. Follows command. MUSCULOSKELETAL: No joint effusion or tenderness. EXTRIMITY: No edema, no cyanosis or clubbing. PSYCH: Cooperative. Subjective Date of service: 03/25/17 Interval history: Patient seen and examined. Medical records and medication list reviewed. No acute event overnight noted by the RN. No further overt bleeding episode s/p stress test today Discussed plan of care at bedside with patient. Objective - Constitutional Vitals: Vital Signs - 12hr 03/25/17 03/25/17 03/25/17 03:00 03:30 03:36 Temperature 98.3 F 98.4 F 98.4 F Pulse Rate 92 H 80 Pulse Rate [ Bilateral Throughout] Respiratory 20 20 20 Rate Respiratory Rate [Bilateral Throughout] Blood Pressure 130/78 140/77 140/77 O2 Sat by Pulse 97 97 Oximetry 03/25/17 03/25/17 03/25/17 03:47 04:00 04:01 Temperature 98.5 F Pulse Rate 98 H Pulse Rate [ 76 82 Bilateral Throughout] Respiratory 18 Rate Respiratory 16 18 Rate [Bilateral Throughout] Blood Pressure 152/86 O2 Sat by Pulse 96 Oximetry 03/25/17 03/25/17 03/25/17 08:43 09:31 09:39 Temperature 99.1 F Pulse Rate 93 H Pulse Rate [ 88 Bilateral Throughout] Respiratory 16 Rate Respiratory 19 Rate [Bilateral Throughout] Blood Pressure 177/111 177/111 O2 Sat by Pulse 95 Oximetry 03/25/17 03/25/17 13:59 14:00 Temperature Pulse Rate Pulse Rate [ 87 89 Bilateral Throughout] Respiratory Rate Respiratory 18 17 Rate [Bilateral Throughout] Blood Pressure O2 Sat by Pulse Oximetry - Labs CBC & Chem 7: 03/25/17 11:15 03/25/17 06:33 Labs: Abnormal lab results 03/24/17 03/24/17 03/24/17 Range/Units 19:27 19:27 19:27 WBC (4.5-11.0) K/mm3 RBC (3.65-5.03) M/mm3 Hgb 6.7 L (10.1-14.3) gm/dl Hct 22.4 L (30.3-42.9) % MCV (79-97) fl MCH (28-32) pg RDW (13.2-15.2) % Seg Neuts % (Manual) (40.0-70.0) % Lymphocytes % (Manual) (13.4-35.0) % Seg Neutrophils # Man (1.8-7.7) K/mm3 Lymphocytes # (Manual) (1.2-5.4) K/mm3 Carbon Dioxide (22-30) mmol/L Glucose (65-100) mg/dL Iron 16 L (37-170) ug/dL Crossmatch See Detail 03/25/17 03/25/17 03/25/17 Range/Units 06:33 06:33 11:15 WBC 16.1 H (4.5-11.0) K/mm3 RBC 3.43 L (3.65-5.03) M/mm3 Hgb 8.0 L 8.2 L (10.1-14.3) gm/dl Hct 26.7 L 26.3 L (30.3-42.9) % MCV 78 L (79-97) fl MCH 23 L (28-32) pg RDW 17.7 H (13.2-15.2) % Seg Neuts % (Manual) 92.0 H (40.0-70.0) % Lymphocytes % (Manual) 5.0 L (13.4-35.0) % Seg Neutrophils # Man 14.8 H (1.8-7.7) K/mm3 Lymphocytes # (Manual) 0.8 L (1.2-5.4) K/mm3 Carbon Dioxide 20 L (22-30) mmol/L Glucose 140 H (65-100) mg/dL Iron (37-170) ug/dL Crossmatch
[2017-03-25] MEDS: TYLENOL PO PRN (15:12)
[2017-03-25] MEDS ORDERED: MAXIPIME 2 GM in NACL 0.9% 20 ML IV SCH (20:00)
[2017-03-25] MEDS ORDERED: ROCEPHIN/NS 2 GM/100 ML 2 GM/100 ML BAG IV SCH (20:00)
[2017-03-25] MEDS ORDERED: cefTRIAXone 2 GM in NACL 0.9% 20 ML IV SCH (20:00)
[2017-03-25] MEDS: ZITHROMAX 500 MG in NACL 0.9% 250ML 250 ML IV SCH (22:39)
[2017-03-25] MEDS: LOVENOX SUB-Q SCH (22:39)
[2017-03-25] MEDS: APRESOLINE PO SCH (22:39)
[2017-03-26] MEDS: DUONEB *Not for PRN Use IH SCH ×4 (02:25→20:48)
--- NOTE | 2017-03-26 02:56 | Treadmill Report ---
THALLIUM STRESS TEST LEFT VENTRICLE: Left ventricular chamber size is within normal. Perfusion study demonstrates mild breast attenuation artifact, otherwise homogeneous uptake of the tracer in all segments, no significant perfusion defects identified. Gated analysis demonstrates normal left ventricular systolic function, ejection fraction 66%. CONCLUSION: Normal myocardial perfusion study. JOB# [id number] CA/NTS
[2017-03-26 04:20] LABS: Hematocrit 26.1 % (30.3-42.9); Hemoglobin 7.9 gm/dl (10.1-14.3)
[2017-03-26] MEDS: APRESOLINE PO SCH ×3 (06:04→22:40)
[2017-03-26] MEDS: SYNTHROID PO SCH (06:05)
--- NOTE | 2017-03-26 09:37 | Gastroenterology Progress Note ---
Assessment and Plan 1.GI bleed 2.BRBPR 3.anemia 4.COPD with acute bronchitis 5.CP 6.hypothyroidism -chest x-ray unremarkable -EKG and cardiac enzymes negative -stress test negative-EF 66% -iron 16 -HGB 7.9-stable -continue to monitor H/H and transfuse as needed -no active signs of bleeding overnight or this am -hold blood thinning medications -clinically pt is feeling better today with CP resolved and SOB improved -continue PPI -etiology unclear -will schedule for EGD/colonoscopy in am -clear liquids today then NPO after MN -continue supportive care -will follow Subjective Date of service: 03/26/17 Principal diagnosis: BRBPR Interval history: Patient resting in bed. No acute distress noted. Reports having a headache but overall is feeling better today. Denies CP, SOB, or signs of active bleeding overnight or this am. Objective - Constitutional Vitals: Temp Pulse Resp BP Pulse Ox 98.7 F 70 18 143/81 99 03/26/17 04:42 03/26/17 06:04 03/26/17 04:42 03/26/17 06:04 03/26/17 04:42 General appearance: no acute distress, obese - EENT Eyes: PERRL, EOM intact ENT: hearing intact - Respiratory Respiratory: bilateral: diminished (anterior) - Cardiovascular Rhythm: regular Heart Sounds: Present: S1 & S2 - Gastrointestinal General gastrointestinal: Present: soft, non-tender, non-distended, normal bowel sounds - Labs CBC & Chem 7: 03/26/17 03:25 03/25/17 06:33 Labs: Laboratory Results - last 24 hr 03/25/17 03/25/17 03/25/17 06:33 11:15 11:44 Hgb 8.2 L Hct 26.3 L Add Manual Diff Complete Total Counted 100 Seg Neuts % (Manual) 92.0 H Band Neutrophils % 2.0 Lymphocytes % (Manual) 5.0 L Reactive Lymphs % (Man) 0 Monocytes % (Manual) 1.0 Eosinophils % (Manual) 0 Basophils % (Manual) 0 Metamyelocytes % 0 Myelocytes % 0 Promyelocytes % 0 Blast Cells % 0 Nucleated RBC % Not Reportable Seg Neutrophils # Man 14.8 H Band Neutrophils # 0.3 Lymphocytes # (Manual) 0.8 L Abs React Lymphs (Man) 0.0 Monocytes # (Manual) 0.2 Eosinophils # (Manual) 0.0 Basophils # (Manual) 0.0 Metamyelocytes # 0.0 Myelocytes # 0.0 Promyelocytes # 0.0 Blast Cells # 0.0 WBC Morphology Not Reportable Hypersegmented Neuts Not Reportable Hyposegmented Neuts Not Reportable Hypogranular Neuts Not Reportable Smudge Cells Not Reportable Toxic Granulation Not Reportable Toxic Vacuolation Not Reportable Dohle Bodies Not Reportable Pelger-Huet Anomaly Not Reportable Christopher Rods Not Reportable Platelet Estimate Not Reportable Clumped Platelets Not Reportable Plt Clumps, EDTA Not Reportable Large Platelets Not Reportable Giant Platelets Not Reportable Platelet Satelliting Not Reportable Plt Morphology Comment Not Reportable RBC Morphology Not Reportable Dimorphic RBCs Not Reportable Polychromasia Not Reportable Hypochromasia 1+ Poikilocytosis Not Reportable Anisocytosis 1+ Microcytosis Not Reportable Macrocytosis Not Reportable Spherocytes Few Pappenheimer Bodies Not Reportable Sickle Cells Not Reportable Target Cells Few Tear Drop Cells Not Reportable Ovalocytes Not Reportable Helmet Cells Not Reportable [place] Bodies Not Reportable [place] Rings Not Reportable Josué Cells Not Reportable Bite Cells Not Reportable Crenated Cell Not Reportable Elliptocytes Not Reportable Acanthocytes (Spur) Not Reportable Rouleaux Not Reportable Hemoglobin C Crystals Not Reportable Schistocytes Not Reportable Malaria parasites Not Reportable Rd Bodies Not Reportable Hem Pathologist Commnt No Troponin T < 0.010 03/26/17 03:25 Hgb 7.9 L Hct 26.1 L Add Manual Diff Total Counted Seg Neuts % (Manual) Band Neutrophils % Lymphocytes % (Manual) Reactive Lymphs % (Man) Monocytes % (Manual) Eosinophils % (Manual) Basophils % (Manual) Metamyelocytes % Myelocytes % Promyelocytes % Blast Cells % Nucleated RBC % Seg Neutrophils # Man Band Neutrophils # Lymphocytes # (Manual) Abs React Lymphs (Man) Monocytes # (Manual) Eosinophils # (Manual) Basophils # (Manual) Metamyelocytes # Myelocytes # Promyelocytes # Blast Cells # WBC Morphology Hypersegmented Neuts Hyposegmented Neuts Hypogranular Neuts Smudge Cells Toxic Granulation Toxic Vacuolation Dohle Bodies Pelger-Huet Anomaly Christopher Rods Platelet Estimate Clumped Platelets Plt Clumps, EDTA Large Platelets Giant Platelets Platelet Satelliting Plt Morphology Comment RBC Morphology Dimorphic RBCs Polychromasia Hypochromasia Poikilocytosis Anisocytosis Microcytosis Macrocytosis Spherocytes Pappenheimer Bodies Sickle Cells Target Cells Tear Drop Cells Ovalocytes Helmet Cells [place] Bodies [place] Rings Josué Cells Bite Cells Crenated Cell Elliptocytes Acanthocytes (Spur) Rouleaux Hemoglobin C Crystals Schistocytes Malaria parasites Rd Bodies Hem Pathologist Commnt Troponin T
[2017-03-26] MEDS ORDERED: GOLYTELY PO ONE (09:40)
[2017-03-26] MEDS: COZAAR PO SCH (11:40)
[2017-03-26] MEDS: PROTONIX IV SCH ×2 (11:41→22:38)
[2017-03-26] MEDS: TYLENOL PO PRN (11:55)
[2017-03-26] MEDS: cefTRIAXone 2 GM in NACL 0.9% 20 ML IV SCH (11:57)
--- NOTE | 2017-03-26 18:43 | Progress Note ---
Assessment and Plan Assessment and plan: /BRBPR (bright red blood per rectum) Protonix IV 40 mg every 12 started. -HGB 8.2-s/p transfusion of 1 unit PRBCs -continue to monitor H/H and transfuse as needed -no active signs of bleeding overnight or this am -pt will have an EGD/colonoscopy once medically stable (possibly on Saturday pending stress results) / Anemia Due to GI loss likely check iron levels and B12 and folic acid. s/p transfusion of 1 unit of packed red blood . /COPD (chronic obstructive pulmonary disease) with acute bronchitis patient started on duo nebs Solu-Medrol and IV Levaquin /Chest pain chest pain probably secondary to pleurisy. s/p Lexiscan today /HTN (hypertension) Will cont on Losartan 100 mg po qd /Hypothyroidism (acquired) patient initiated on Synthroid 125 mcg by mouth daily. Patient not taking Synthroid for 2 weeks. /DVT prophylaxis SCD Consult cardiology for EGD clearance History Interval history: Patient was seen and examined. Follow-up on current diagnosis/rectal bleeding. Overnight uneventful. Patient denies any shortness breath, nausea/vomiting or severe headaches. Imaging, nursing note, chart, labs and old chart reviewed. Discussed with patient. Patient did not complain of chest pain to me , the pain is most likely epigastric area but it appears she was having chest pain when GI to evaluate her; therefore, GI call me for clearance to do EGD Hospitalist Physical - Physical exam Narrative exam: GEN: WDWN, NAD, AWAKE, ALERT, ORIENTATED 3 HEENT: NCAT, EOMI, PERRL, OP Clear NECK: supple, no adenopathy, no thyromegaly, no JVD CVS/HEART: RRR, NORMAL S1S2, NO JVD, pulses present bilaterally CHEST/LUNGS: CTA B, Symmetrical chest expansion, good air entry bilaterally GI/Abdomen: soft, nondistended, epigastric abdominal pain good bowel sounds, no guarding or rebound /Bladder: no suprapubic tenderness, no CVA or paraspinal tenderness EXT/Skin: no c/c/e, no obvious rash MSK: FROM x 4 Neuro: CN 2-12 grossly intact, no new focal deficits Psych: calm - Constitutional Vitals: Temp Pulse Resp BP Pulse Ox 97.2 F L 67 18 139/76 97 03/26/17 16:56 03/26/17 16:56 03/26/17 16:56 03/26/17 16:56 03/26/17 16:56 General appearance: Present: no acute distress, well-nourished. Absent: mild distress Results - Labs CBC & Chem 7: 03/26/17 03:25 03/25/17 06:33 Labs: Laboratory Last Values WBC 16.1 K/mm3 (4.5-11.0) H 03/25/17 06:33 RBC 3.43 M/mm3 (3.65-5.03) L 03/25/17 06:33 Hgb 7.9 gm/dl (10.1-14.3) L 03/26/17 03:25 Hct 26.1 % (30.3-42.9) L 03/26/17 03:25 MCV 78 fl (79-97) L 03/25/17 06:33 MCH 23 pg (28-32) L 03/25/17 06:33 MCHC 30 % (30-34) 03/25/17 06:33 RDW 17.7 % (13.2-15.2) H 03/25/17 06:33 Plt Count 320 K/mm3 (140-440) 03/25/17 06:33 Lymph % (Auto) 17.3 % (13.4-35.0) 03/24/17 08:17 [place] % (Auto) 6.6 % (0.0-7.3) 03/24/17 08:17 Eos % (Auto) 0.4 % (0.0-4.3) 03/24/17 08:17 Baso % (Auto) 1.0 % (0.0-1.8) 03/24/17 08:17 Lymph # 1.3 K/mm3 (1.2-5.4) 03/24/17 08:17 [place] # 0.5 K/mm3 (0.0-0.8) 03/24/17 08:17 Eos # 0.0 K/mm3 (0.0-0.4) 03/24/17 08:17 Baso # 0.1 K/mm3 (0.0-0.1) 03/24/17 08:17 Add Manual Diff Complete 03/25/17 06:33 Total Counted 100 03/25/17 06:33 Seg Neutrophils % Radiography Technician 03/25/17 06:33 Seg Neuts % (Manual) 92.0 % (40.0-70.0) H 03/25/17 06:33 Band Neutrophils % 2.0 % 03/25/17 06:33 Lymphocytes % (Manual) 5.0 % (13.4-35.0) L 03/25/17 06:33 Reactive Lymphs % (Man) 0 % 03/25/17 06:33 Monocytes % (Manual) 1.0 % (0.0-7.3) 03/25/17 06:33 Eosinophils % (Manual) 0 % (0.0-4.3) 03/25/17 06:33 Basophils % (Manual) 0 % (0.0-1.8) 03/25/17 06:33 Metamyelocytes % 0 % 03/25/17 06:33 Myelocytes % 0 % 03/25/17 06:33 Promyelocytes % 0 % 03/25/17 06:33 Blast Cells % 0 % 03/25/17 06:33 Nucleated RBC % Not Reportable 03/25/17 06:33 Seg Neutrophils # 5.7 K/mm3 (1.8-7.7) 03/24/17 08:17 Seg Neutrophils # Man 14.8 K/mm3 (1.8-7.7) H 03/25/17 06:33 Band Neutrophils # 0.3 K/mm3 03/25/17 06:33 Lymphocytes # (Manual) 0.8 K/mm3 (1.2-5.4) L 03/25/17 06:33 Abs React Lymphs (Man) 0.0 K/mm3 03/25/17 06:33 Monocytes # (Manual) 0.2 K/mm3 (0.0-0.8) 03/25/17 06:33 Eosinophils # (Manual) 0.0 K/mm3 (0.0-0.4) 03/25/17 06:33 Basophils # (Manual) 0.0 K/mm3 (0.0-0.1) 03/25/17 06:33 Metamyelocytes # 0.0 K/mm3 03/25/17 06:33 Myelocytes # 0.0 K/mm3 03/25/17 06:33 Promyelocytes # 0.0 K/mm3 03/25/17 06:33 Blast Cells # 0.0 K/mm3 03/25/17 06:33 WBC Morphology Not Reportable 03/25/17 06:33 Hypersegmented Neuts Not Reportable 03/25/17 06:33 Hyposegmented Neuts Not Reportable 03/25/17 06:33 Hypogranular Neuts Not Reportable 03/25/17 06:33 Smudge Cells Not Reportable 03/25/17 06:33 Toxic Granulation Not Reportable 03/25/17 06:33 Toxic Vacuolation Not Reportable 03/25/17 06:33 Dohle Bodies Not Reportable 03/25/17 06:33 Pelger-Huet Anomaly Not Reportable 03/25/17 06:33 Christopher Rods Not Reportable 03/25/17 06:33 Platelet Estimate Not Reportable 03/25/17 06:33 Clumped Platelets Not Reportable 03/25/17 06:33 Plt Clumps, EDTA Not Reportable 03/25/17 06:33 Large Platelets Not Reportable 03/25/17 06:33 Giant Platelets Not Reportable 03/25/17 06:33 Platelet Satelliting Not Reportable 03/25/17 06:33 Plt Morphology Comment Not Reportable 03/25/17 06:33 RBC Morphology Not Reportable 03/25/17 06:33 Dimorphic RBCs Not Reportable 03/25/17 06:33 Polychromasia Not Reportable 03/25/17 06:33 Hypochromasia 1+ 03/25/17 06:33 Poikilocytosis Not Reportable 03/25/17 06:33 Anisocytosis 1+ 03/25/17 06:33 Microcytosis Not Reportable 03/25/17 06:33 Macrocytosis Not Reportable 03/25/17 06:33 Spherocytes Few 03/25/17 06:33 Pappenheimer Bodies Not Reportable 03/25/17 06:33 Sickle Cells Not Reportable 03/25/17 06:33 Target Cells Few 03/25/17 06:33 Tear Drop Cells Not Reportable 03/25/17 06:33 Ovalocytes Not Reportable 03/25/17 06:33 Helmet Cells Not Reportable 03/25/17 06:33 Tobin-Rafael Gonzalez Bodies Not Reportable 03/25/17 06:33 Ellery Rings Not Reportable 03/25/17 06:33 Josué Cells Not Reportable 03/25/17 06:33 Bite Cells Not Reportable 03/25/17 06:33 Crenated Cell Not Reportable 03/25/17 06:33 Elliptocytes Not Reportable 03/25/17 06:33 Acanthocytes (Spur) Not Reportable 03/25/17 06:33 Rouleaux Not Reportable 03/25/17 06:33 Hemoglobin C Crystals Not Reportable 03/25/17 06:33 Schistocytes Not Reportable 03/25/17 06:33 Malaria parasites Not Reportable 03/25/17 06:33 Rd Bodies Not Reportable 03/25/17 06:33 Hem Pathologist Commnt No 03/25/17 06:33 D-Dimer 173.61 ng/mlDDU (0-234) 03/24/17 11:09 Sodium 140 mmol/L (137-145) D 03/25/17 06:33 Potassium 4.4 mmol/L (3.6-5.0) 03/25/17 06:33 Chloride 103.5 mmol/L (98-107) 03/25/17 06:33 Carbon Dioxide 20 mmol/L (22-30) L 03/25/17 06:33 Anion Gap 21 mmol/L 03/25/17 06:33 BUN 16 mg/dL (7-17) 03/25/17 06:33 Creatinine 0.9 mg/dL (0.7-1.2) 03/25/17 06:33 Estimated GFR > 60 ml/min 03/25/17 06:33 BUN/Creatinine Ratio 18 % 03/25/17 06:33 Glucose 140 mg/dL (65-100) H 03/25/17 06:33 Calcium 8.5 mg/dL (8.4-10.2) 03/25/17 06:33 Iron 16 ug/dL (37-170) L 03/24/17 19:27 TIBC 425 mcg/dL (250-450) 03/24/17 19:27 % Saturation 3.76 % 03/24/17 19:27 Transferrin 368 mg/dl (192-382) 03/24/17 19:27 Total Bilirubin < 0.20 mg/dL (0.1-1.2) 03/25/17 06:33 AST 28 units/L (5-40) 03/25/17 06:33 ALT 31 units/L (7-56) 03/25/17 06:33 Alkaline Phosphatase 53 units/L (35-129) 03/25/17 06:33 Total Creatine Kinase 141 units/L (30-135) H 03/24/17 11:09 CK-MB (CK-2) 1.8 ng/mL (0.0-4.0) 03/24/17 11:09 CK-MB (CK-2) Rel Index 1.2 (0-4) 03/24/17 11:09 Troponin T < 0.010 ng/mL (0.00-0.029) 03/25/17 11:44 NT-Pro-B Natriuret Pep 168.5 pg/mL (0-900) 03/24/17 11:09 Total Protein 7.1 g/dL (6.3-8.2) 03/25/17 06:33 Albumin 4.1 g/dL (3.9-5) 03/25/17 06:33 Albumin/Globulin Ratio 1.4 % 03/25/17 06:33 Vitamin B12 466.1 pg/mL (211-911) 03/24/17 19:27 Blood Type O POSITIVE 03/24/17 19:27 Antibody Screen Negative 03/24/17 19:27 Crossmatch See Detail 03/24/17 19:27
[2017-03-26] MEDS: ZITHROMAX 500 MG in NACL 0.9% 250ML 250 ML IV SCH (19:52)
[2017-03-26] MEDS: ZOFRAN IV PRN (22:39)
[2017-03-27] MEDS: DUONEB *Not for PRN Use IH SCH ×4 (02:38→21:14)
[2017-03-27] MEDS: APRESOLINE PO SCH ×3 (06:00→21:16)
[2017-03-27] MEDS: SYNTHROID PO SCH (06:01)
[2017-03-27] MEDS: TYLENOL PO PRN (06:04)
[2017-03-27 07:03] LABS: Hematocrit 26.8 % (30.3-42.9); Hemoglobin 8.1 gm/dl (10.1-14.3); Mean Corpuscular HGB Conc 30 % (30-34); Mean Corpuscular Volume 77 fl (79-97); Platelet Count 355 K/mm3 (140-440); Red Blood Count 3.48 M/mm3 (3.65-5.03); Red Cell Distribution Width 17.8 % (13.2-15.2)
[2017-03-27 07:11] LABS: INR 0.95 (0.87-1.13)
[2017-03-27 07:18] LABS: Mean Corpuscular Hemoglobin 23 pg (28-32)
[2017-03-27 08:19] LABS: BUN/Creatinine Ratio 20; Blood Urea Nitrogen 18 mg/dL (7-17); Calcium 8.6 mg/dL (8.4-10.2); Hemolysis Index 0
[2017-03-27 10:09] LABS: Total Cells Counted 100
[2017-03-27 10:10] LABS: Anisocytosis 1+; Band Neutrophils # (Manual) 0.4 K/mm3; Basophils % (Manual) 0 % (0.0-1.8); Eosinophils % (Manual) 0 % (0.0-4.3); Hypochromasia 3+
[2017-03-27 10:11] LABS: Spherocytes Few; Target Cells Few
[2017-03-27] MEDS: cefTRIAXone 2 GM in NACL 0.9% 20 ML IV SCH (11:26)
[2017-03-27] MEDS: COZAAR PO SCH (11:26)
[2017-03-27] MEDS: PROTONIX IV SCH (11:26)
--- NOTE | 2017-03-27 11:28 | Consultation ---
History of Present Illness Consult date: 03/27/17 Requesting physician: KIT OLVERA Consult reason: chest pain History of present illness: This is a 56-year-old -[place] female with history of hypertension smoker he's been having for the last several weeks flulike symptoms with shortness of breath with exertion and also chest pain patient was admitted last week for chest pain had a negative chemical stress test. Patient's symptoms of blood per rectum recurred and came back to the hospital with still recurrent chest pain. Patient's chest pain is reproducible with deep palpation which is the complaint she is having and also with deep breathing. Patient has pleurisy. Patient denies any nausea vomiting palpitation. Patient 6 months ago had no shortness of breath or chest pain with exertion. Has been having coughing with sputum production no fever no syncope Past History Past Medical History: hypertension, hypothyroidism Past Surgical History: hysterectomy Social history: smoking Family history: hypertension Medications and Allergies Allergies Allergy/AdvReac Type Severity Reaction Status Date / Time codeine Allergy Rash Verified 03/12/17 12:22 diphenhydramine Allergy Rash Verified 03/12/17 12:22 [From Benadryl] Home Medications Medication Instructions Recorded Confirmed Last Taken Type No Known Home Medications [No 03/24/17 03/24/17 Unknown History Reported Home Medications] Active Meds: Active Medications Acetaminophen (Tylenol) 650 mg PO Q4H PRN PRN Reason: Pain, Mild (1-3) Last Admin: 03/27/17 06:04 Dose: 650 mg Albuterol/Ipratropium (Duoneb *Not For Prn Use*) 1 ampul IH Q6HRT [facility] Last Admin: 03/27/17 09:18 Dose: Not Given Bisacodyl (Dulcolax) 10 mg MT QDAY PRN PRN Reason: Constipation unrelieved by MOM Hydralazine HCl (Apresoline) 5 mg IV Q30MIN PRN PRN Reason: Hypertension Last Admin: 03/25/17 09:31 Dose: 5 mg Hydralazine HCl (Apresoline) 50 mg PO Q8HR [facility] Last Admin: 03/27/17 06:00 Dose: 50 mg Azithromycin 500 mg/ Sodium (Chloride) 250 mls @ 250 mls/hr IV Q24H [facility] Last Admin: 03/26/17 19:52 Dose: 250 mls/hr Ceftriaxone Sodium 2 gm/ (Sodium Chloride) 20 mls @ 20 mls/10 min IV Q24HR [facility] Last Admin: 03/26/17 11:57 Dose: 20 mls/10 min Levothyroxine Sodium (Synthroid) 125 mcg PO DAILY@0600 [facility] Last Admin: 03/27/17 06:01 Dose: 125 mcg Losartan Potassium (Cozaar) 100 mg PO QDAY [facility] Last Admin: 03/26/17 11:40 Dose: 100 mg Magnesium Hydroxide (Milk Of Magnesia) 30 ml PO Q4H PRN PRN Reason: Constipation Methylprednisolone Sodium Succinate (Solu-Medrol) 40 mg IV Q8HR [facility] Last Admin: 03/27/17 06:01 Dose: 40 mg Morphine Sulfate (Morphine) 2 mg IV Q4H PRN PRN Reason: Pain, Moderate (4-6) Last Admin: 03/25/17 10:10 Dose: 2 mg Morphine Sulfate (Morphine) 4 mg IV Q4H PRN PRN Reason: Pain , Severe (7-10) Ondansetron HCl (Zofran) 4 mg IV Q8H PRN PRN Reason: N/V unrelieved by Reglan Last Admin: 03/26/17 22:39 Dose: 4 mg Oxycodone/Acetaminophen (Percocet 5/325) 1 tab PO Q6H PRN PRN Reason: Pain, Moderate (4-6) Pantoprazole Sodium (Protonix) 40 mg IV BID [facility] Last Admin: 03/26/17 22:38 Dose: 40 mg Review of Systems All systems: negative (hpi) Physical Examination Vital Signs Temp Pulse Resp BP Pulse Ox 97.5 F L 87 18 124/70 99 03/24/17 07:58 03/24/17 07:58 03/24/17 07:58 03/24/17 07:58 03/24/17 07:58 General appearance: no acute distress, well-nourished HEENT: Positive: PERRL, Mucus Membranes Moist Neck: Positive: neck supple, trachea midline Cardiac: Positive: Reg Rate and Rhythm, S1/S2, Other (chest pain with palpation chest pain with palpation). Negative: Audible Murmur Lungs: Positive: clear to auscultation, Normal Breath Sounds Neuro: Positive: Grossly Intact Abdomen: Positive: Soft, Active Bowel Sounds. Negative: Tender, Distended Female genitourinary: deferred Skin: Positive: Clear Incision: Cardiac Cath Site Musculoskeletal: No Pain, Normal Range of Motion Extremities: Present: normal. Absent: edema Results 03/27/17 06:20 03/27/17 06:20 Cardiac Enzymes 03/24/17 03/24/17 03/24/17 Range/Units 08:17 08:17 11:09 WBC 7.6 (4.5-11.0) K/mm3 RBC 3.08 L (3.65-5.03) M/mm3 Hgb 6.9 L (10.1-14.3) gm/dl Hct 23.1 L (30.3-42.9) % MCV 75 L (79-97) fl MCH 22 L (28-32) pg MCHC 30 (30-34) % RDW 16.4 H (13.2-15.2) % Plt Count 351 (140-440) K/mm3 Lymph % (Auto) 17.3 (13.4-35.0) % [place] % (Auto) 6.6 (0.0-7.3) % Eos % (Auto) 0.4 (0.0-4.3) % Baso % (Auto) 1.0 (0.0-1.8) % Lymph # 1.3 (1.2-5.4) K/mm3 [place] # 0.5 (0.0-0.8) K/mm3 Eos # 0.0 (0.0-0.4) K/mm3 Baso # 0.1 (0.0-0.1) K/mm3 Add Manual Diff Total Counted Seg Neutrophils % 74.7 H (40.0-70.0) % Seg Neuts % (Manual) (40.0-70.0) % Band Neutrophils % % Lymphocytes % (Manual) (13.4-35.0) % Reactive Lymphs % (Man) % Monocytes % (Manual) (0.0-7.3) % Eosinophils % (Manual) (0.0-4.3) % Basophils % (Manual) (0.0-1.8) % Metamyelocytes % % Myelocytes % % Promyelocytes % % Blast Cells % % Nucleated RBC % Seg Neutrophils # 5.7 (1.8-7.7) K/mm3 Seg Neutrophils # Man (1.8-7.7) K/mm3 Band Neutrophils # K/mm3 Lymphocytes # (Manual) (1.2-5.4) K/mm3 Abs React Lymphs (Man) K/mm3 Monocytes # (Manual) (0.0-0.8) K/mm3 Eosinophils # (Manual) (0.0-0.4) K/mm3 Basophils # (Manual) (0.0-0.1) K/mm3 Metamyelocytes # K/mm3 Myelocytes # K/mm3 Promyelocytes # K/mm3 Blast Cells # K/mm3 WBC Morphology Hypersegmented Neuts Hyposegmented Neuts Hypogranular Neuts Smudge Cells Toxic Granulation Toxic Vacuolation Dohle Bodies Pelger-Huet Anomaly Christopher Rods Platelet Estimate Clumped Platelets Plt Clumps, EDTA Large Platelets Giant Platelets Platelet Satelliting Plt Morphology Comment RBC Morphology Dimorphic RBCs Polychromasia Hypochromasia Poikilocytosis Anisocytosis Microcytosis Macrocytosis Spherocytes Pappenheimer Bodies Sickle Cells Target Cells Tear Drop Cells Ovalocytes Helmet Cells [place] Bodies [place] Cells Bite Cells Crenated Cell Elliptocytes Acanthocytes (Spur) Rouleaux Hemoglobin C Crystals Schistocytes Malaria parasites Rd Bodies Hem Pathologist Commnt PT (12.2-14.9) Sec. INR (0.87-1.13) D-Dimer 173.61 (0-234) ng/mlDDU Sodium 149 H (137-145) mmol/L Potassium 4.6 (3.6-5.0) mmol/L Chloride 108.5 H (98-107) mmol/L Carbon Dioxide 20 L (22-30) mmol/L Anion Gap 25 mmol/L BUN 19 H (7-17) mg/dL Creatinine 1.1 (0.7-1.2) mg/dL Estimated GFR > 60 ml/min BUN/Creatinine Ratio 17 % Glucose 95 (65-100) mg/dL Calcium 9.5 (8.4-10.2) mg/dL Iron (37-170) ug/dL TIBC (250-450) mcg/dL % Saturation % Transferrin (192-382) mg/dl Total Bilirubin (0.1-1.2) mg/dL ALT (7-56) units/L Alkaline Phosphatase (35-129) units/L Total Creatine Kinase (30-135) units/L CK-MB (CK-2) Rel Index (0-4) Troponin T (0.00-0.029) ng/mL NT-Pro-B Natriuret Pep (0-900) pg/mL Total Protein (6.3-8.2) g/dL Albumin (3.9-5) g/dL Albumin/Globulin Ratio % Vitamin B12 (211-911) pg/mL 03/24/17 03/24/17 03/24/17 Range/Units 11:09 19:27 19:27 WBC (4.5-11.0) K/mm3 RBC (3.65-5.03) M/mm3 Hgb (10.1-14.3) gm/dl Hct (30.3-42.9) % MCV (79-97) fl MCH (28-32) pg MCHC (30-34) % RDW (13.2-15.2) % Plt Count (140-440) K/mm3 Lymph % (Auto) (13.4-35.0) % [place] % (Auto) (0.0-7.3) % Eos % (Auto) (0.0-4.3) % Baso % (Auto) (0.0-1.8) % Lymph # (1.2-5.4) K/mm3 [place] # (0.0-0.8) K/mm3 Eos # (0.0-0.4) K/mm3 Baso # (0.0-0.1) K/mm3 Add Manual Diff Total Counted Seg Neutrophils % (40.0-70.0) % Seg Neuts % (Manual) (40.0-70.0) % Band Neutrophils % % Lymphocytes % (Manual) (13.4-35.0) % Reactive Lymphs % (Man) % Monocytes % (Manual) (0.0-7.3) % Eosinophils % (Manual) (0.0-4.3) % Basophils % (Manual) (0.0-1.8) % Metamyelocytes % % Myelocytes % % Promyelocytes % % Blast Cells % % Nucleated RBC % Seg Neutrophils # (1.8-7.7) K/mm3 Seg Neutrophils # Man (1.8-7.7) K/mm3 Band Neutrophils # K/mm3 Lymphocytes # (Manual) (1.2-5.4) K/mm3 Abs React Lymphs (Man) K/mm3 Monocytes # (Manual) (0.0-0.8) K/mm3 Eosinophils # (Manual) (0.0-0.4) K/mm3 Basophils # (Manual) (0.0-0.1) K/mm3 Metamyelocytes # K/mm3 Myelocytes # K/mm3 Promyelocytes # K/mm3 Blast Cells # K/mm3 WBC Morphology Hypersegmented Neuts Hyposegmented Neuts Hypogranular Neuts Smudge Cells Toxic Granulation Toxic Vacuolation Dohle Bodies Pelger-Huet Anomaly Christopher Rods Platelet Estimate Clumped Platelets Plt Clumps, EDTA Large Platelets Giant Platelets Platelet Satelliting Plt Morphology Comment RBC Morphology Dimorphic RBCs Polychromasia Hypochromasia Poikilocytosis Anisocytosis Microcytosis Macrocytosis Spherocytes Pappenheimer Bodies Sickle Cells Target Cells Tear Drop Cells Ovalocytes Helmet Cells [place] Bodies [place] Rings [place] Cells Bite Cells Crenated Cell Elliptocytes Acanthocytes (Spur) Rouleaux Hemoglobin C Crystals Schistocytes Malaria parasites Rd Bodies Hem Pathologist Commnt PT (12.2-14.9) Sec. INR (0.87-1.13) D-Dimer (0-234) ng/mlDDU Sodium (137-145) mmol/L Potassium (3.6-5.0) mmol/L Chloride (98-107) mmol/L Carbon Dioxide (22-30) mmol/L Anion Gap mmol/L BUN (7-17) mg/dL Creatinine (0.7-1.2) mg/dL Estimated GFR ml/min BUN/Creatinine Ratio % Glucose (65-100) mg/dL Calcium (8.4-10.2) mg/dL Iron 16 L (37-170) ug/dL TIBC 425 (250-450) mcg/dL % Saturation 3.76 % Transferrin 368 (192-382) mg/dl Total Bilirubin (0.1-1.2) mg/dL ALT (7-56) units/L Alkaline Phosphatase (35-129) units/L Total Creatine Kinase 141 H (30-135) units/L CK-MB (CK-2) Rel Index 1.2 (0-4) Troponin T < 0.010 < 0.010 (0.00-0.029) ng/mL NT-Pro-B Natriuret Pep 168.5 (0-900) pg/mL Total Protein (6.3-8.2) g/dL Albumin (3.9-5) g/dL Albumin/Globulin Ratio % Vitamin B12 466.1 (211-911) pg/mL 03/24/17 03/25/17 03/25/17 Range/Units 19:27 06:33 06:33 WBC 16.1 H (4.5-11.0) K/mm3 RBC 3.43 L (3.65-5.03) M/mm3 Hgb 6.7 L 8.0 L (10.1-14.3) gm/dl Hct 22.4 L 26.7 L (30.3-42.9) % MCV 78 L (79-97) fl MCH 23 L (28-32) pg MCHC 30 (30-34) % RDW 17.7 H (13.2-15.2) % Plt Count 320 (140-440) K/mm3 Lymph % (Auto) (13.4-35.0) % [place] % (Auto) (0.0-7.3) % Eos % (Auto) (0.0-4.3) % Baso % (Auto) (0.0-1.8) % Lymph # (1.2-5.4) K/mm3 [place] # (0.0-0.8) K/mm3 Eos # (0.0-0.4) K/mm3 Baso # (0.0-0.1) K/mm3 Add Manual Diff Complete Total Counted 100 Seg Neutrophils % Electric Tripper Machine Operator (40.0-70.0) % Seg Neuts % (Manual) 92.0 H (40.0-70.0) % Band Neutrophils % 2.0 % Lymphocytes % (Manual) 5.0 L (13.4-35.0) % Reactive Lymphs % (Man) 0 % Monocytes % (Manual) 1.0 (0.0-7.3) % Eosinophils % (Manual) 0 (0.0-4.3) % Basophils % (Manual) 0 (0.0-1.8) % Metamyelocytes % 0 % Myelocytes % 0 % Promyelocytes % 0 % Blast Cells % 0 % Nucleated RBC % Not Reportable Seg Neutrophils # (1.8-7.7) K/mm3 Seg Neutrophils # Man 14.8 H (1.8-7.7) K/mm3 Band Neutrophils # 0.3 K/mm3 Lymphocytes # (Manual) 0.8 L (1.2-5.4) K/mm3 Abs React Lymphs (Man) 0.0 K/mm3 Monocytes # (Manual) 0.2 (0.0-0.8) K/mm3 Eosinophils # (Manual) 0.0 (0.0-0.4) K/mm3 Basophils # (Manual) 0.0 (0.0-0.1) K/mm3 Metamyelocytes # 0.0 K/mm3 Myelocytes # 0.0 K/mm3 Promyelocytes # 0.0 K/mm3 Blast Cells # 0.0 K/mm3 WBC Morphology Not Reportable Hypersegmented Neuts Not Reportable Hyposegmented Neuts Not Reportable Hypogranular Neuts Not Reportable Smudge Cells Not Reportable Toxic Granulation Not Reportable Toxic Vacuolation Not Reportable Dohle Bodies Not Reportable Pelger-Huet Anomaly Not Reportable Christopher Rods Not Reportable Platelet Estimate Not Reportable Clumped Platelets Not Reportable Plt Clumps, EDTA Not Reportable Large Platelets Not Reportable Giant Platelets Not Reportable Platelet Satelliting Not Reportable Plt Morphology Comment Not Reportable RBC Morphology Not Reportable Dimorphic RBCs Not Reportable Polychromasia Not Reportable Hypochromasia 1+ Poikilocytosis Not Reportable Anisocytosis 1+ Microcytosis Not Reportable Macrocytosis Not Reportable Spherocytes Few Pappenheimer Bodies Not Reportable Sickle Cells Not Reportable Target Cells Few Tear Drop Cells Not Reportable Ovalocytes Not Reportable Helmet Cells Not Reportable [place] Bodies Not Reportable [place] Rings Not Reportable [place] Cells Not Reportable Bite Cells Not Reportable Crenated Cell Not Reportable Elliptocytes Not Reportable Acanthocytes (Spur) Not Reportable Rouleaux Not Reportable Hemoglobin C Crystals Not Reportable Schistocytes Not Reportable Malaria parasites Not Reportable Rd Bodies Not Reportable Hem Pathologist Commnt No PT (12.2-14.9) Sec. INR (0.87-1.13) D-Dimer (0-234) ng/mlDDU Sodium 140 D (137-145) mmol/L Potassium 4.4 (3.6-5.0) mmol/L Chloride 103.5 (98-107) mmol/L Carbon Dioxide 20 L (22-30) mmol/L Anion Gap 21 mmol/L BUN 16 (7-17) mg/dL Creatinine 0.9 (0.7-1.2) mg/dL Estimated GFR > 60 ml/min BUN/Creatinine Ratio 18 % Glucose 140 H (65-100) mg/dL Calcium 8.5 (8.4-10.2) mg/dL Iron (37-170) ug/dL TIBC (250-450) mcg/dL % Saturation % Transferrin (192-382) mg/dl Total Bilirubin < 0.20 (0.1-1.2) mg/dL ALT 31 (7-56) units/L Alkaline Phosphatase 53 (35-129) units/L Total Creatine Kinase (30-135) units/L CK-MB (CK-2) Rel Index (0-4) Troponin T (0.00-0.029) ng/mL NT-Pro-B Natriuret Pep (0-900) pg/mL Total Protein 7.1 (6.3-8.2) g/dL Albumin 4.1 (3.9-5) g/dL Albumin/Globulin Ratio 1.4 % Vitamin B12 (211-911) pg/mL 03/25/17 03/25/17 03/25/17 Range/Units 06:50 11:15 11:44 WBC (4.5-11.0) K/mm3 RBC (3.65-5.03) M/mm3 Hgb 8.2 L (10.1-14.3) gm/dl Hct 26.3 L (30.3-42.9) % MCV (79-97) fl MCH (28-32) pg MCHC (30-34) % RDW (13.2-15.2) % Plt Count (140-440) K/mm3 Lymph % (Auto) (13.4-35.0) % [place] % (Auto) (0.0-7.3) % Eos % (Auto) (0.0-4.3) % Baso % (Auto) (0.0-1.8) % Lymph # (1.2-5.4) K/mm3 [place] # (0.0-0.8) K/mm3 Eos # (0.0-0.4) K/mm3 Baso # (0.0-0.1) K/mm3 Add Manual Diff Total Counted Seg Neutrophils % (40.0-70.0) % Seg Neuts % (Manual) (40.0-70.0) % Band Neutrophils % % Lymphocytes % (Manual) (13.4-35.0) % Reactive Lymphs % (Man) % Monocytes % (Manual) (0.0-7.3) % Eosinophils % (Manual) (0.0-4.3) % Basophils % (Manual) (0.0-1.8) % Metamyelocytes % % Myelocytes % % Promyelocytes % % Blast Cells % % Nucleated RBC % Seg Neutrophils # (1.8-7.7) K/mm3 Seg Neutrophils # Man (1.8-7.7) K/mm3 Band Neutrophils # K/mm3 Lymphocytes # (Manual) (1.2-5.4) K/mm3 Abs React Lymphs (Man) K/mm3 Monocytes # (Manual) (0.0-0.8) K/mm3 Eosinophils # (Manual) (0.0-0.4) K/mm3 Basophils # (Manual) (0.0-0.1) K/mm3 Metamyelocytes # K/mm3 Myelocytes # K/mm3 Promyelocytes # K/mm3 Blast Cells # K/mm3 WBC Morphology Hypersegmented Neuts Hyposegmented Neuts Hypogranular Neuts Smudge Cells Toxic Granulation Toxic Vacuolation Dohle Bodies Pelger-Huet Anomaly Christopher Rods Platelet Estimate Clumped Platelets Plt Clumps, EDTA Large Platelets Giant Platelets Platelet Satelliting Plt Morphology Comment RBC Morphology Dimorphic RBCs Polychromasia Hypochromasia Poikilocytosis Anisocytosis Microcytosis Macrocytosis Spherocytes Pappenheimer Bodies Sickle Cells Target Cells Tear Drop Cells Ovalocytes Helmet Cells [place] Bodies [place] Rings [place] Cells Bite Cells Crenated Cell Elliptocytes Acanthocytes (Spur) Rouleaux Hemoglobin C Crystals Schistocytes Malaria parasites Rd Bodies Hem Pathologist Commnt PT (12.2-14.9) Sec. INR (0.87-1.13) D-Dimer (0-234) ng/mlDDU Sodium (137-145) mmol/L Potassium (3.6-5.0) mmol/L Chloride (98-107) mmol/L Carbon Dioxide (22-30) mmol/L Anion Gap mmol/L BUN (7-17) mg/dL Creatinine (0.7-1.2) mg/dL Estimated GFR ml/min BUN/Creatinine Ratio % Glucose (65-100) mg/dL Calcium (8.4-10.2) mg/dL Iron (37-170) ug/dL TIBC (250-450) mcg/dL % Saturation % Transferrin (192-382) mg/dl Total Bilirubin (0.1-1.2) mg/dL ALT (7-56) units/L Alkaline Phosphatase (35-129) units/L Total Creatine Kinase (30-135) units/L CK-MB (CK-2) Rel Index (0-4) Troponin T < 0.010 < 0.010 (0.00-0.029) ng/mL NT-Pro-B Natriuret Pep (0-900) pg/mL Total Protein (6.3-8.2) g/dL Albumin (3.9-5) g/dL Albumin/Globulin Ratio % Vitamin B12 (211-911) pg/mL 03/26/17 03/27/17 03/27/17 Range/Units 03:25 06:20 06:20 WBC 22.4 H (4.5-11.0) K/mm3 RBC 3.48 L (3.65-5.03) M/mm3 Hgb 7.9 L 8.1 L (10.1-14.3) gm/dl Hct 26.1 L 26.8 L (30.3-42.9) % MCV 77 L (79-97) fl MCH 23 L (28-32) pg MCHC 30 (30-34) % RDW 17.8 H (13.2-15.2) % Plt Count 355 (140-440) K/mm3 Lymph % (Auto) (13.4-35.0) % [place] % (Auto) (0.0-7.3) % Eos % (Auto) (0.0-4.3) % Baso % (Auto) (0.0-1.8) % Lymph # (1.2-5.4) K/mm3 [place] # (0.0-0.8) K/mm3 Eos # (0.0-0.4) K/mm3 Baso # (0.0-0.1) K/mm3 Add Manual Diff Complete Total Counted 100 Seg Neutrophils % Electric Tripper Machine Operator (40.0-70.0) % Seg Neuts % (Manual) 93.0 H (40.0-70.0) % Band Neutrophils % 2.0 % Lymphocytes % (Manual) 3.0 L (13.4-35.0) % Reactive Lymphs % (Man) 0 % Monocytes % (Manual) 2.0 (0.0-7.3) % Eosinophils % (Manual) 0 (0.0-4.3) % Basophils % (Manual) 0 (0.0-1.8) % Metamyelocytes % 0 % Myelocytes % 0 % Promyelocytes % 0 % Blast Cells % 0 % Nucleated RBC % Not Reportable Seg Neutrophils # (1.8-7.7) K/mm3 Seg Neutrophils # Man 20.8 H (1.8-7.7) K/mm3 Band Neutrophils # 0.4 K/mm3 Lymphocytes # (Manual) 0.7 L (1.2-5.4) K/mm3 Abs React Lymphs (Man) 0.0 K/mm3 Monocytes # (Manual) 0.4 (0.0-0.8) K/mm3 Eosinophils # (Manual) 0.0 (0.0-0.4) K/mm3 Basophils # (Manual) 0.0 (0.0-0.1) K/mm3 Metamyelocytes # 0.0 K/mm3 Myelocytes # 0.0 K/mm3 Promyelocytes # 0.0 K/mm3 Blast Cells # 0.0 K/mm3 WBC Morphology Not Reportable Hypersegmented Neuts Not Reportable Hyposegmented Neuts Not Reportable Hypogranular Neuts Not Reportable Smudge Cells Not Reportable Toxic Granulation Not Reportable Toxic Vacuolation Not Reportable Dohle Bodies Not Reportable Pelger-Huet Anomaly Not Reportable Christopher Rods Not Reportable Platelet Estimate Not Reportable Clumped Platelets Not Reportable Plt Clumps, EDTA Not Reportable Large Platelets Not Reportable Giant Platelets Not Reportable Platelet Satelliting Not Reportable Plt Morphology Comment Not Reportable RBC Morphology Not Reportable Dimorphic RBCs Not Reportable Polychromasia Not Reportable Hypochromasia 3+ Poikilocytosis Not Reportable Anisocytosis 1+ Microcytosis 1+ Macrocytosis Not Reportable Spherocytes Few Pappenheimer Bodies Not Reportable Sickle Cells Not Reportable Target Cells Few Tear Drop Cells Not Reportable Ovalocytes Not Reportable Helmet Cells Not Reportable [place] Bodies Not Reportable [place] Rings Not Reportable [place] Cells Not Reportable Bite Cells Not Reportable Crenated Cell Not Reportable Elliptocytes Not Reportable Acanthocytes (Spur) Not Reportable Rouleaux Not Reportable Hemoglobin C Crystals Not Reportable Schistocytes Not Reportable Malaria parasites Not Reportable Rd Bodies Not Reportable Hem Pathologist Commnt No PT 13.1 (12.2-14.9) Sec. INR 0.95 (0.87-1.13) D-Dimer (0-234) ng/mlDDU Sodium (137-145) mmol/L Potassium (3.6-5.0) mmol/L Chloride (98-107) mmol/L Carbon Dioxide (22-30) mmol/L Anion Gap mmol/L BUN (7-17) mg/dL Creatinine (0.7-1.2) mg/dL Estimated GFR ml/min BUN/Creatinine Ratio % Glucose (65-100) mg/dL Calcium (8.4-10.2) mg/dL Iron (37-170) ug/dL TIBC (250-450) mcg/dL % Saturation % Transferrin (192-382) mg/dl Total Bilirubin (0.1-1.2) mg/dL ALT (7-56) units/L Alkaline Phosphatase (35-129) units/L Total Creatine Kinase (30-135) units/L CK-MB (CK-2) Rel Index (0-4) Troponin T (0.00-0.029) ng/mL NT-Pro-B Natriuret Pep (0-900) pg/mL Total Protein (6.3-8.2) g/dL Albumin (3.9-5) g/dL Albumin/Globulin Ratio % Vitamin B12 (211-911) pg/mL 03/27/17 Range/Units 06:20 WBC (4.5-11.0) K/mm3 RBC (3.65-5.03) M/mm3 Hgb (10.1-14.3) gm/dl Hct (30.3-42.9) % MCV (79-97) fl MCH (28-32) pg MCHC (30-34) % RDW (13.2-15.2) % Plt Count (140-440) K/mm3 Lymph % (Auto) (13.4-35.0) % [place] % (Auto) (0.0-7.3) % Eos % (Auto) (0.0-4.3) % Baso % (Auto) (0.0-1.8) % Lymph # (1.2-5.4) K/mm3 [place] # (0.0-0.8) K/mm3 Eos # (0.0-0.4) K/mm3 Baso # (0.0-0.1) K/mm3 Add Manual Diff Total Counted Seg Neutrophils % (40.0-70.0) % Seg Neuts % (Manual) (40.0-70.0) % Band Neutrophils % % Lymphocytes % (Manual) (13.4-35.0) % Reactive Lymphs % (Man) % Monocytes % (Manual) (0.0-7.3) % Eosinophils % (Manual) (0.0-4.3) % Basophils % (Manual) (0.0-1.8) % Metamyelocytes % % Myelocytes % % Promyelocytes % % Blast Cells % % Nucleated RBC % Seg Neutrophils # (1.8-7.7) K/mm3 Seg Neutrophils # Man (1.8-7.7) K/mm3 Band Neutrophils # K/mm3 Lymphocytes # (Manual) (1.2-5.4) K/mm3 Abs React Lymphs (Man) K/mm3 Monocytes # (Manual) (0.0-0.8) K/mm3 Eosinophils # (Manual) (0.0-0.4) K/mm3 Basophils # (Manual) (0.0-0.1) K/mm3 Metamyelocytes # K/mm3 Myelocytes # K/mm3 Promyelocytes # K/mm3 Blast Cells # K/mm3 WBC Morphology Hypersegmented Neuts Hyposegmented Neuts Hypogranular Neuts Smudge Cells Toxic Granulation Toxic Vacuolation Dohle Bodies Pelger-Huet Anomaly Christopher Rods Platelet Estimate Clumped Platelets Plt Clumps, EDTA Large Platelets Giant Platelets Platelet Satelliting Plt Morphology Comment RBC Morphology Dimorphic RBCs Polychromasia Hypochromasia Poikilocytosis Anisocytosis Microcytosis Macrocytosis Spherocytes Pappenheimer Bodies Sickle Cells Target Cells Tear Drop Cells Ovalocytes Helmet Cells [place] Bodies [place] Rings [place] Cells Bite Cells Crenated Cell Elliptocytes Acanthocytes (Spur) Rouleaux Hemoglobin C Crystals Schistocytes Malaria parasites Rd Bodies Hem Pathologist Commnt PT (12.2-14.9) Sec. INR (0.87-1.13) D-Dimer (0-234) ng/mlDDU Sodium 143 (137-145) mmol/L Potassium 4.1 (3.6-5.0) mmol/L Chloride 103.0 (98-107) mmol/L Carbon Dioxide 26 (22-30) mmol/L Anion Gap 18 mmol/L BUN 18 H (7-17) mg/dL Creatinine 0.9 (0.7-1.2) mg/dL Estimated GFR > 60 ml/min BUN/Creatinine Ratio 20 % Glucose 104 H (65-100) mg/dL Calcium 8.6 (8.4-10.2) mg/dL Iron (37-170) ug/dL TIBC (250-450) mcg/dL % Saturation % Transferrin (192-382) mg/dl Total Bilirubin (0.1-1.2) mg/dL ALT (7-56) units/L Alkaline Phosphatase (35-129) units/L Total Creatine Kinase (30-135) units/L CK-MB (CK-2) Rel Index (0-4) Troponin T (0.00-0.029) ng/mL NT-Pro-B Natriuret Pep (0-900) pg/mL Total Protein (6.3-8.2) g/dL Albumin (3.9-5) g/dL Albumin/Globulin Ratio % Vitamin B12 (211-911) pg/mL Coagulation 03/27/17 Range/Units 06:20 PT 13.1 (12.2-14.9) Sec. INR 0.95 (0.87-1.13) CBC 03/27/17 Range/Units 06:20 WBC 22.4 H (4.5-11.0) K/mm3 RBC 3.48 L (3.65-5.03) M/mm3 Hgb 8.1 L (10.1-14.3) gm/dl Hct 26.8 L (30.3-42.9) % Plt Count 355 (140-440) K/mm3 Comprehensive Metabolic Panel 03/27/17 Range/Units 06:20 Sodium 143 (137-145) mmol/L Potassium 4.1 (3.6-5.0) mmol/L Chloride 103.0 (98-107) mmol/L Carbon Dioxide 26 (22-30) mmol/L BUN 18 H (7-17) mg/dL Creatinine 0.9 (0.7-1.2) mg/dL Glucose 104 H (65-100) mg/dL Calcium 8.6 (8.4-10.2) mg/dL - Imaging and Cardiology Stress echo: other (nuclear profusion study03/24/2017 of ischemia and normal LV function) EKG interpretations - Telemetry EKG Rhythm: Sinus Rhythm (normal sinus rhythm with LVH with strain pattern) Assessment and Plan Chest pain secondary to pleurisy Hypertension Smoker Possible COPD exacerbation Blood per rectum Recommend continuing steroids for chest pain and for COPD in view of normal myocardial perfusion scan patient has no cardiac contraindication for GI workup for EGD and colonoscopy. Patient's chest pain does not appear to be cardiac in nature , as is reproducible. Continue BP control
--- NOTE | 2017-03-27 15:12 | Gastroenterology Progress Note ---
Assessment and Plan - Patient Problems (1) BRBPR (bright red blood per rectum) Current Visit: Yes Status: Acute (2) COPD (chronic obstructive pulmonary disease) with acute bronchitis Current Visit: Yes Status: Acute (3) Chest pain Current Visit: Yes Status: Acute Qualifiers: Chest pain type: chest pain on breathing Qualified Code(s): R07.1 - Chest pain on breathing; R07.81 - Pleurodynia Plan to address problem: Cardiology evaluation appreciated. Non cardiac chest pain, probably due to pleurisy. Rule out pericarditis. Cleared for GI procedures. (4) Anemia Current Visit: Yes Status: Chronic Qualifiers: Anemia type: iron deficiency Plan to address problem: Colonoscopy and EGD have been rescheduled for tomorrow. 1/2 prep tonight. (5) HTN (hypertension) Current Visit: Yes Status: Chronic Qualifiers: Hypertension type: essential hypertension Qualified Code(s): I10 - Essential (primary) hypertension (6) Hypothyroidism (acquired) Current Visit: Yes Status: Chronic Subjective Date of service: 03/27/17 Principal diagnosis: GI bleeding Interval history: The patient reports feeling well. No further chest pain and no SOB. Objective - Constitutional Vitals: Temp Pulse Resp BP Pulse Ox 98.4 F 82 20 154/86 96 03/27/17 07:45 03/27/17 11:26 03/27/17 08:44 03/27/17 11:26 03/27/17 08:44 General appearance: no acute distress - EENT ENT: hearing intact, clear oral mucosa, dentition normal - Neck Neck: supple, normal ROM - Respiratory Respiratory effort: normal Respiratory: bilateral: CTA - Cardiovascular Rhythm: regular - Extremities Extremities: pulses intact, No edema, normal color, Full ROM - Gastrointestinal General gastrointestinal: Present: soft, non-tender, non-distended, normal bowel sounds - Neurologic Neurological: alert and oriented x3 - Labs CBC & Chem 7: 03/27/17 06:20 03/27/17 06:20 Labs: Laboratory Results - last 24 hr 03/27/17 03/27/17 03/27/17 06:20 06:20 06:20 WBC 22.4 H RBC 3.48 L Hgb 8.1 L Hct 26.8 L MCV 77 L MCH 23 L MCHC 30 RDW 17.8 H Plt Count 355 Add Manual Diff Complete Total Counted 100 Seg Neutrophils % Interpersonal Communications Professor Seg Neuts % (Manual) 93.0 H Band Neutrophils % 2.0 Lymphocytes % (Manual) 3.0 L Reactive Lymphs % (Man) 0 Monocytes % (Manual) 2.0 Eosinophils % (Manual) 0 Basophils % (Manual) 0 Metamyelocytes % 0 Myelocytes % 0 Promyelocytes % 0 Blast Cells % 0 Nucleated RBC % Not Reportable Seg Neutrophils # Man 20.8 H Band Neutrophils # 0.4 Lymphocytes # (Manual) 0.7 L Abs React Lymphs (Man) 0.0 Monocytes # (Manual) 0.4 Eosinophils # (Manual) 0.0 Basophils # (Manual) 0.0 Metamyelocytes # 0.0 Myelocytes # 0.0 Promyelocytes # 0.0 Blast Cells # 0.0 WBC Morphology Not Reportable Hypersegmented Neuts Not Reportable Hyposegmented Neuts Not Reportable Hypogranular Neuts Not Reportable Smudge Cells Not Reportable Toxic Granulation Not Reportable Toxic Vacuolation Not Reportable Dohle Bodies Not Reportable Pelger-Huet Anomaly Not Reportable Christopher Rods Not Reportable Platelet Estimate Not Reportable Clumped Platelets Not Reportable Plt Clumps, EDTA Not Reportable Large Platelets Not Reportable Giant Platelets Not Reportable Platelet Satelliting Not Reportable Plt Morphology Comment Not Reportable RBC Morphology Not Reportable Dimorphic RBCs Not Reportable Polychromasia Not Reportable Hypochromasia 3+ Poikilocytosis Not Reportable Anisocytosis 1+ Microcytosis 1+ Macrocytosis Not Reportable Spherocytes Few Pappenheimer Bodies Not Reportable Sickle Cells Not Reportable Target Cells Few Tear Drop Cells Not Reportable Ovalocytes Not Reportable Helmet Cells Not Reportable [place] Bodies Not Reportable [place] Rings Not Reportable Josué Cells Not Reportable Bite Cells Not Reportable Crenated Cell Not Reportable Elliptocytes Not Reportable Acanthocytes (Spur) Not Reportable Rouleaux Not Reportable Hemoglobin C Crystals Not Reportable Schistocytes Not Reportable Malaria parasites Not Reportable Rd Bodies Not Reportable Hem Pathologist Commnt No PT 13.1 INR 0.95 Sodium 143 Potassium 4.1 Chloride 103.0 Carbon Dioxide 26 Anion Gap 18 BUN 18 H Creatinine 0.9 Estimated GFR > 60 BUN/Creatinine Ratio 20 Glucose 104 H Calcium 8.6
[2017-03-27] MEDS ORDERED: GOLYTELY PO SCH (16:00)
--- NOTE | 2017-03-27 16:45 | Progress Note ---
Assessment and Plan Assessment and plan: /BRBPR (bright red blood per rectum) Protonix IV 40 mg every 12 started. -HGB 8.2-s/p transfusion of 1 unit PRBCs -continue to monitor H/H and transfuse as needed -no active signs of bleeding overnight or this am -pt will have an EGD/colonoscopy once medically stable (possibly on Saturday pending stress results) / Anemia Due to GI loss likely check iron levels and B12 and folic acid. s/p transfusion of 1 unit of packed red blood . /COPD (chronic obstructive pulmonary disease) with acute bronchitis patient started on duo nebs Solu-Medrol and IV Levaquin /Chest pain chest pain probably secondary to pleurisy. s/p Lexiscan today /HTN (hypertension) Will cont on Losartan 100 mg po qd /Hypothyroidism (acquired) patient initiated on Synthroid 125 mcg by mouth daily. Patient not taking Synthroid for 2 weeks. /DVT prophylaxis SCD Cardiology cleared for EGD d/w Dr. Delgadillo History Interval history: Patient was seen and examined. Follow-up on current diagnosis/rectal bleeding. Overnight uneventful. Patient denies any cp, shortness breath, nausea/ vomiting or severe headaches. Imaging, nursing note, chart, labs and old chart reviewed. Discussed with patient. Hospitalist Physical - Physical exam Narrative exam: GEN: WDWN, NAD, AWAKE, ALERT, ORIENTATED 3 HEENT: NCAT, EOMI, PERRL, OP Clear NECK: supple, no adenopathy, no thyromegaly, no JVD CVS/HEART: RRR, NORMAL S1S2, NO JVD, pulses present bilaterally CHEST/LUNGS: CTA B, Symmetrical chest expansion, good air entry bilaterally GI/Abdomen: soft, nondistended, epigastric abdominal pain good bowel sounds, no guarding or rebound /Bladder: no suprapubic tenderness, no CVA or paraspinal tenderness EXT/Skin: no c/c/e, no obvious rash MSK: FROM x 4 Neuro: CN 2-12 grossly intact, no new focal deficits Psych: calm - Constitutional Vitals: Temp Pulse Resp BP Pulse Ox 98.4 F 84 20 146/86 96 03/27/17 07:45 03/27/17 15:43 03/27/17 08:44 03/27/17 15:43 03/27/17 08:44 General appearance: Present: no acute distress, well-nourished Results - Labs CBC & Chem 7: 03/27/17 06:20 03/27/17 06:20 Labs: Laboratory Last Values WBC 22.4 K/mm3 (4.5-11.0) H 03/27/17 06:20 RBC 3.48 M/mm3 (3.65-5.03) L 03/27/17 06:20 Hgb 8.1 gm/dl (10.1-14.3) L 03/27/17 06:20 Hct 26.8 % (30.3-42.9) L 03/27/17 06:20 MCV 77 fl (79-97) L 03/27/17 06:20 MCH 23 pg (28-32) L 03/27/17 06:20 MCHC 30 % (30-34) 03/27/17 06:20 RDW 17.8 % (13.2-15.2) H 03/27/17 06:20 Plt Count 355 K/mm3 (140-440) 03/27/17 06:20 Lymph % (Auto) 17.3 % (13.4-35.0) 03/24/17 08:17 [place] % (Auto) 6.6 % (0.0-7.3) 03/24/17 08:17 Eos % (Auto) 0.4 % (0.0-4.3) 03/24/17 08:17 Baso % (Auto) 1.0 % (0.0-1.8) 03/24/17 08:17 Lymph # 1.3 K/mm3 (1.2-5.4) 03/24/17 08:17 [place] # 0.5 K/mm3 (0.0-0.8) 03/24/17 08:17 Eos # 0.0 K/mm3 (0.0-0.4) 03/24/17 08:17 Baso # 0.1 K/mm3 (0.0-0.1) 03/24/17 08:17 Add Manual Diff Complete 03/27/17 06:20 Total Counted 100 03/27/17 06:20 Seg Neutrophils % Derrickman Helper 03/27/17 06:20 Seg Neuts % (Manual) 93.0 % (40.0-70.0) H 03/27/17 06:20 Band Neutrophils % 2.0 % 03/27/17 06:20 Lymphocytes % (Manual) 3.0 % (13.4-35.0) L 03/27/17 06:20 Reactive Lymphs % (Man) 0 % 03/27/17 06:20 Monocytes % (Manual) 2.0 % (0.0-7.3) 03/27/17 06:20 Eosinophils % (Manual) 0 % (0.0-4.3) 03/27/17 06:20 Basophils % (Manual) 0 % (0.0-1.8) 03/27/17 06:20 Metamyelocytes % 0 % 03/27/17 06:20 Myelocytes % 0 % 03/27/17 06:20 Promyelocytes % 0 % 03/27/17 06:20 Blast Cells % 0 % 03/27/17 06:20 Nucleated RBC % Not Reportable 03/27/17 06:20 Seg Neutrophils # 5.7 K/mm3 (1.8-7.7) 03/24/17 08:17 Seg Neutrophils # Man 20.8 K/mm3 (1.8-7.7) H 03/27/17 06:20 Band Neutrophils # 0.4 K/mm3 03/27/17 06:20 Lymphocytes # (Manual) 0.7 K/mm3 (1.2-5.4) L 03/27/17 06:20 Abs React Lymphs (Man) 0.0 K/mm3 03/27/17 06:20 Monocytes # (Manual) 0.4 K/mm3 (0.0-0.8) 03/27/17 06:20 Eosinophils # (Manual) 0.0 K/mm3 (0.0-0.4) 03/27/17 06:20 Basophils # (Manual) 0.0 K/mm3 (0.0-0.1) 03/27/17 06:20 Metamyelocytes # 0.0 K/mm3 03/27/17 06:20 Myelocytes # 0.0 K/mm3 03/27/17 06:20 Promyelocytes # 0.0 K/mm3 03/27/17 06:20 Blast Cells # 0.0 K/mm3 03/27/17 06:20 WBC Morphology Not Reportable 03/27/17 06:20 Hypersegmented Neuts Not Reportable 03/27/17 06:20 Hyposegmented Neuts Not Reportable 03/27/17 06:20 Hypogranular Neuts Not Reportable 03/27/17 06:20 Smudge Cells Not Reportable 03/27/17 06:20 Toxic Granulation Not Reportable 03/27/17 06:20 Toxic Vacuolation Not Reportable 03/27/17 06:20 Dohle Bodies Not Reportable 03/27/17 06:20 Pelger-Huet Anomaly Not Reportable 03/27/17 06:20 Christopher Rods Not Reportable 03/27/17 06:20 Platelet Estimate Not Reportable 03/27/17 06:20 Clumped Platelets Not Reportable 03/27/17 06:20 Plt Clumps, EDTA Not Reportable 03/27/17 06:20 Large Platelets Not Reportable 03/27/17 06:20 Giant Platelets Not Reportable 03/27/17 06:20 Platelet Satelliting Not Reportable 03/27/17 06:20 Plt Morphology Comment Not Reportable 03/27/17 06:20 RBC Morphology Not Reportable 03/27/17 06:20 Dimorphic RBCs Not Reportable 03/27/17 06:20 Polychromasia Not Reportable 03/27/17 06:20 Hypochromasia 3+ 03/27/17 06:20 Poikilocytosis Not Reportable 03/27/17 06:20 Anisocytosis 1+ 03/27/17 06:20 Microcytosis 1+ 03/27/17 06:20 Macrocytosis Not Reportable 03/27/17 06:20 Spherocytes Few 03/27/17 06:20 Pappenheimer Bodies Not Reportable 03/27/17 06:20 Sickle Cells Not Reportable 03/27/17 06:20 Target Cells Few 03/27/17 06:20 Tear Drop Cells Not Reportable 03/27/17 06:20 Ovalocytes Not Reportable 03/27/17 06:20 Helmet Cells Not Reportable 03/27/17 06:20 [place] Bodies Not Reportable 03/27/17 06:20 [place] Rings Not Reportable 03/27/17 06:20 Josué Cells Not Reportable 03/27/17 06:20 Bite Cells Not Reportable 03/27/17 06:20 Crenated Cell Not Reportable 03/27/17 06:20 Elliptocytes Not Reportable 03/27/17 06:20 Acanthocytes (Spur) Not Reportable 03/27/17 06:20 Rouleaux Not Reportable 03/27/17 06:20 Hemoglobin C Crystals Not Reportable 03/27/17 06:20 Schistocytes Not Reportable 03/27/17 06:20 Malaria parasites Not Reportable 03/27/17 06:20 Rd Bodies Not Reportable 03/27/17 06:20 Hem Pathologist Commnt No 03/27/17 06:20 PT 13.1 Sec. (12.2-14.9) 03/27/17 06:20 INR 0.95 (0.87-1.13) 03/27/17 06:20 D-Dimer 173.61 ng/mlDDU (0-234) 03/24/17 11:09 Sodium 143 mmol/L (137-145) 03/27/17 06:20 Potassium 4.1 mmol/L (3.6-5.0) 03/27/17 06:20 Chloride 103.0 mmol/L (98-107) 03/27/17 06:20 Carbon Dioxide 26 mmol/L (22-30) 03/27/17 06:20 Anion Gap 18 mmol/L 03/27/17 06:20 BUN 18 mg/dL (7-17) H 03/27/17 06:20 Creatinine 0.9 mg/dL (0.7-1.2) 03/27/17 06:20 Estimated GFR > 60 ml/min 03/27/17 06:20 BUN/Creatinine Ratio 20 % 03/27/17 06:20 Glucose 104 mg/dL (65-100) H 03/27/17 06:20 Calcium 8.6 mg/dL (8.4-10.2) 03/27/17 06:20 Iron 16 ug/dL (37-170) L 03/24/17 19:27 TIBC 425 mcg/dL (250-450) 03/24/17 19:27 % Saturation 3.76 % 03/24/17 19:27 Transferrin 368 mg/dl (192-382) 03/24/17 19:27 Total Bilirubin < 0.20 mg/dL (0.1-1.2) 03/25/17 06:33 AST 28 units/L (5-40) 03/25/17 06:33 ALT 31 units/L (7-56) 03/25/17 06:33 Alkaline Phosphatase 53 units/L (35-129) 03/25/17 06:33 Total Creatine Kinase 141 units/L (30-135) H 03/24/17 11:09 CK-MB (CK-2) 1.8 ng/mL (0.0-4.0) 03/24/17 11:09 CK-MB (CK-2) Rel Index 1.2 (0-4) 03/24/17 11:09 Troponin T < 0.010 ng/mL (0.00-0.029) 03/25/17 11:44 NT-Pro-B Natriuret Pep 168.5 pg/mL (0-900) 03/24/17 11:09 Total Protein 7.1 g/dL (6.3-8.2) 03/25/17 06:33 Albumin 4.1 g/dL (3.9-5) 03/25/17 06:33 Albumin/Globulin Ratio 1.4 % 03/25/17 06:33 Vitamin B12 466.1 pg/mL (211-911) 03/24/17 19:27 Blood Type O POSITIVE 03/24/17 19:27 Antibody Screen Negative 03/24/17 19:27 Crossmatch See Detail 03/24/17 19:27
[2017-03-27] MEDS: PROTONIX PO SCH (21:15)
[2017-03-27] MEDS ORDERED: ZITHROMAX PO SCH (22:00)
[2017-03-28] MEDS: PERCOCET 5/325 PO PRN ×2 (00:03→14:29)
[2017-03-28] MEDS: APRESOLINE IV PRN (00:06)
[2017-03-28] MEDS: DUONEB *Not for PRN Use IH SCH ×3 (02:06→14:57)
[2017-03-28] MEDS: SYNTHROID PO SCH (06:50)
[2017-03-28] MEDS: APRESOLINE PO SCH ×2 (06:50→13:35)
[2017-03-28] MEDS: COZAAR PO SCH (10:00)
--- NOTE | 2017-03-28 10:35 | Progress Note ---
Assessment and Plan anemia secondary to gi bleeding chest pain secondary to pleursiy htn smoker rec: echo normal lv function no cardiac contra indications for gi procedure Subjective Date of service: 03/28/17 Principal diagnosis: GI bleeding Interval history: pt chest pain better Objective Vital Signs Temp Pulse Resp BP Pulse Ox 03/28/17 08:34 98.9 F 70 18 134/73 96 03/28/17 06:50 75 139/69 03/28/17 05:06 98.4 F 78 20 139/69 96 03/28/17 00:10 98.3 F 76 18 145/81 99 03/27/17 21:16 174/97 03/27/17 20:50 76 03/27/17 20:16 97.9 F 73 20 174/97 98 03/27/17 15:43 84 146/86 03/27/17 12:18 99.1 F 83 20 150/90 95 03/27/17 11:26 82 154/86 - Physical Examination General: No Apparent Distress HEENT: Positive: PERRL, Mucus Membranes Moist Neck: Positive: neck supple, trachea midline Cardiac: Positive: Reg Rate and Rhythm Lungs: Positive: clear to auscultation Neuro: Positive: Grossly Intact Abdomen: Positive: Soft, Active Bowel Sounds. Negative: Tender, Distended Skin: Positive: Clear Incision: Cardiac Cath Site Musculoskeletal: No Pain, Normal Range of Motion Extremities: Present: normal. Absent: edema - Imaging and Cardiology EKG: report reviewed (normal sinus rhythm and LVH repolarization abnormalities) Pharmacologic stress test: report reviewed (03/24/2017 normal myocardial perfusion no ischemia noted) Stress echo: other (nuclear profusion study03/24/2017 of ischemia and normal LV function) Echo: report reviewed (03/27/2017 normal lv function moderate lvh no significant regurtitations) - Telemetry EKG Rhythm: Sinus Rhythm
[2017-03-28] MEDS ORDERED: NACL 0.9% 1000 ML 1,000 ML ONE ×2 (11:08→11:39)
[2017-03-28] MEDS ORDERED: DIPRIVAN 10 MG/ML IV ONE ×2 (11:22→11:23)
--- NOTE | 2017-03-28 12:12 | Operative Report ---
Operative Report Operative Report: Date of procedure: 03/28/2017 Procedure: Esophagogastroduodenoscopy Preprocedure diagnosis: Severe anemia, unexplained Post procedure diagnosis: Normal upper digestive tract Endoscopist: Dr. Jacques Anesthesia: Monitored anesthesia care per anesthesia department Medications: Propofol per anesthesia Estimated blood loss: 0 After careful discussion of the nature and purpose of the procedure as well as details the technique risks benefits and alternatives consent was obtained. The patient was placed in the left lateral decubitus position and medicated per anesthesia. The tip of the Abaxia EQ 570 video scope was passed per orum under direct vision into the esophagus and advanced into the stomach and descending duodenum. The descending duodenum the duodenal bulb and pylorus were symmetrical and normal. The scope was withdrawn into the stomach and the stomach then gently insufflated with air. The antrum was normal. The stomach was further insufflated and the scope was then retroflexed and partially withdrawn. The cardia, fundus, and body of the stomach were within normal limits and easily distensible.The scope was then withdrawn in the forward position. The esophagogastric junction was at 40 cm. The esophageal body was normal throughout. The procedure was was well tolerated and the patient was observed in recovery. Impressions: Normal appearing upper digestive tract. Plan: Further evaluation with colonoscopy Electronically signed: Cipriano Jacques MD
--- NOTE | 2017-03-28 12:15 | Operative Report ---
Operative Report Operative Report: Date of procedure: 03/28/2017 Preprocedure diagnosis: Severe anemia with suspected GI blood loss. 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 Procedure: Colonoscopy to the cecum with argon plasma coagulation of AVM, cold snare polypectomy Endoscopist: Dr. Jacques Anesthesia: Monitored anesthesia care per anesthesia department Estimated blood loss: 0 Medications: Monitored anesthesia care. See separate report by anesthesia for details. After careful discussion of the nature and purpose of the procedure as well as details of the technique risks benefits and alternatives the patient gave consent. Please see recent history and physical from the office. The patient was placed in the left lateral decubitus position and medicated per anesthesia. A rectal exam was performed sphincter tone was normal there were no masses palpable. The [employer] 570 scope was passed transanally and advanced under continuous direct vision without difficulty to the cecum. The colon was well prepared. The cecum revealed a 6 mm AVM. In light of her anemia and the AVM was ablated with the argon plasma supervising nurse successfully. There was no bleeding encountered. The ascending colon was normal and on forward and retroflexed views. The transverse colon, descending colon, and sigmoid colon were normal. A 4 mm polyp was noted in the splenic flexure. This was removed with cold snare resection but was not retrieved as the polyp fragmented. The rectum was normal on forward and retroflexed views. The procedure was well-tolerated overall and the patient was observed in recovery. Conclusions: AVM in the cecum, status post ablation. Diminutive splenic flexure polyp removed but fragmented and not retrieved. Plan: Iron therapy. Outpatient follow-up. Consideration of outpatient pill camera study depending upon her progress. The patient appears stable for consideration of discharge from the GI standpoint. Signed electronically: Cipriano Jacques M.D.
--- NOTE | 2017-03-28 12:17 | Anesthesia Consultation ---
Anesthesia Consult and Med Hx Date of service: 03/28/17 - Airway Anesthetic Teeth Evaluation: Good ROM Head & Neck: Adequate Mental/Hyoid Distance: Adequate Mallampati Class: Class III Intubation Access Assessment: Possibly Difficult - Pulmonary Exam CTA: Yes - Cardiac Exam Cardiac Exam: RRR - Pre-Operative Health Status ASA Pre-Surgery Classification: ASA3 Proposed Anesthetic Plan: MAC - Pulmonary Hx Smoking: Yes COPD: Yes - Cardiovascular System Hx Hypertension: Yes Hx Angina: Yes (seen by armorer technician, due to pleurisy ) - Endocrine Hx Thyroid Disease: Yes Hx Hypothyroidism: Yes - Hematic Hx Anemia: Yes
--- NOTE | 2017-03-28 12:17 | Anesthesia Day of Surgery ---
Anesthesia Day of Surgery - Day of Surgery Patient Examined: Yes Patient H&P Reviewed: Yes Patient is NPO: Yes
[2017-03-28 13:36] VITALS: BP 144/83
[2017-03-28] MEDS: PROTONIX PO SCH (13:36)
[2017-03-28] MEDS: cefTRIAXone 2 GM in NACL 0.9% 20 ML IV SCH (13:49)
--- NOTE | 2017-03-28 15:34 | Discharge Summary ---
Providers - Providers Date of Admission: 03/24/17 11:44 Date of discharge: 03/28/17 Attending physician: KIT OVLERA 03/24/17 19:30 Consult to Physician [CONS] Routine Consulting Provider: DARIA AUSTIN Reason For Exam: BRBPR Place consult to:: gi Notified:: luis Was contact made?: Yes Time called:: 09:30 03/26/17 13:48 Consult to Physician [CONS] Routine Consulting Provider: RADHA VALENTE Reason For Exam: Recurrent Chest pains, need EGD clearance per GI Place consult to:: [facility] Notified:: yes Comment:: dded to list Primary care physician: JODI MOSER Hospitalization Condition: Stable Hospital course: Patient is 56 yo woman with a history of iron deficiency anemia, copd, hypothyroidism (off synthroid x 2 weeks), hypertension who presented with sob, chest pains and rectal bleeding. Hemoglobin was found to be 6.7. ECHO: TTE 03/27/17: Global left venticular systolic function is normal, moderate concentric LVH, est. EF 55-60%, RVSF normal, trace TR Stress test: reported as negative EGD: 03/28/2017 unremarkable Colonoscopy: Date of procedure: 03/28/2017 Preprocedure diagnosis: Severe anemia with suspected GI blood loss. 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 Procedure: Colonoscopy to the cecum with argon plasma coagulation of AVM, cold snare polypectomy Endoscopist: Dr. Jacques Anesthesia: Monitored anesthesia care per anesthesia department Estimated blood loss: 0 Medications: Monitored anesthesia care. See separate report by anesthesia for details. After careful discussion of the nature and purpose of the procedure as well as details of the technique risks benefits and alternatives the patient gave consent. Please see recent history and physical from the office. The patient was placed in the left lateral decubitus position and medicated per anesthesia. A rectal exam was performed sphincter tone was normal there were no masses palpable. The [employer]iTechn 570 scope was passed transanally and advanced under continuous direct vision without difficulty to the cecum. The colon was well prepared. The cecum revealed a 6 mm AVM. In light of her anemia and the AVM was ablated with the argon plasma customer care voice consultant successfully. There was no bleeding encountered. The ascending colon was normal and on forward and retroflexed views. The transverse colon, descending colon, and sigmoid colon were normal. A 4 mm polyp was noted in the splenic flexure. This was removed with cold snare resection but was not retrieved as the polyp fragmented. The rectum was normal on forward and retroflexed views. The procedure was well-tolerated overall and the patient was observed in recovery. Conclusions: AVM in the cecum, status post ablation. Diminutive splenic flexure polyp removed but fragmented and not retrieved. Plan: Iron therapy. Outpatient follow-up. Consideration of outpatient pill camera study depending upon her progress. The patient appears stable for consideration of discharge from the GI standpoint. Acute on chronic blood loss anemia due to AVM in the cecum s/p ablation Protonix IV 40 mg every 12 started. -HGB 8.2-s/p transfusion of 1 unit PRBCs -continue to monitor H/H and transfuse as needed -no active signs of bleeding overnight or this am -pt will have an EGD/colonoscopy once medically stable (possibly on Saturday pending stress results) Acute exacerbation of COPD (chronic obstructive pulmonary disease) with acute bronchitis patient started on duo nebs Solu-Medrol and IV Levaquin Chest pain most likely anxiety related. she c/o severe sob, chest pains when I walked her, she was having a panic attack in front of me. Her pulse ox was 98% with activity. She has quite of bit of anxiety, even verified by daughter Morena at bedside. Cardiology cleared for EGD , d/w Dr. Delgadillo HTN (hypertension) Will cont on Losartan 100 mg po qd Hypothyroidism (acquired) patient initiated on Synthroid 125 mcg by mouth daily. Patient not taking Synthroid for 2 weeks. Leukocytosis due to iv steroids. /DVT prophylaxis SCD Disposition: DC-01 TO HOME OR SELFCARE Time spent for discharge: 35 minutes Core Measure Documentation - Palliative Care Palliative Care/ Comfort Measures: Not Applicable - Core Measures Any of the following diagnoses?: none - VTE Discharge Requirements Deep Vein Thrombosis/Pulmonary Embolism Present on Admission: No Has pt received <5 days of overlap therapy or INR<2.0: No Anticoagulant overlap therapy prescribed at discharge: No Contraindication No Overlap Therapy order at DC: Not Indicated Exam - Physical Exam Narrative exam: GEN: WDWN, NAD, AWAKE, ALERT, ORIENTATED 3 HEENT: NCAT, EOMI, PERRL, OP Clear NECK: supple, no adenopathy, no thyromegaly, no JVD CVS/HEART: RRR, NORMAL S1S2, NO JVD, pulses present bilaterally CHEST/LUNGS: CTA B, Symmetrical chest expansion, good air entry bilaterally GI/Abdomen: soft, nondistended, epigastric abdominal pain good bowel sounds, no guarding or rebound /Bladder: no suprapubic tenderness, no CVA or paraspinal tenderness EXT/Skin: no c/c/e, no obvious rash MSK: FROM x 4 Neuro: CN 2-12 grossly intact, no new focal deficits Psych: calm - Constitutional Vitals: Temp Pulse Resp BP Pulse Ox 97.7 F 66 18 144/83 100 03/28/17 12:05 03/28/17 13:35 03/28/17 14:29 03/28/17 13:35 03/28/17 12:35 Plan Activity: no driving until cleared by PCP, up only with assistance, other (no strenous activity until cleared by pcp) Diet: advance as tolerated Special Instructions: smoking cessation Follow up with: JODI MOSER MD [Primary Care Provider] - 7 Days RADHA VALENTE MD [Staff Physician] - 7 Days DARIA AUSTIN MD [Staff Physician] - 7 Days Prescriptions: ALPRAZolam [Xanax TAB] 0.25 mg PO BID PRN #6 tab PRN Reason: Anxiety Ipratropium/Albuterol Sulfate [DUONEB *Not for PRN Use*] 1 ampul IH Q6HRT #30 day Levofloxacin [Levaquin] 750 mg PO QDAY #3 day Levothyroxine [Synthroid] 125 mcg PO DAILY@0600 #30 tablet Losartan [Cozaar] 100 mg PO QDAY #30 tablet methylPREDNISolone [Medrol Dose Anthony] 1 dose PO DAILY #1 pack oxyCODONE /ACETAMINOPHEN [Percocet 5/325 mg] 1 tab PO Q6H PRN #20 tablet PRN Reason: Pain , Severe (7-10) Pantoprazole [Protonix TAB] 40 mg PO BID #60 tablet
== END 2017-03-28 19:52 | disposition home or self-care (01) | DRG 300 ==
LOC: ED 07:54 → 4A 11:44
PROVIDERS: ADMIT Internal Medicine; ATTEND Internal Medicine
PROC: 30233N1 Transfusion of Nonautologous Red Blood Cells into Peripheral Vein, Percutaneous Approach (ICD-10-PCS; principal; 2017-03-25)
PROC: 0DJ08ZZ Inspection of Upper Intestinal Tract, Via Natural or Artificial Opening Endoscopic (ICD-10-PCS; 2017-03-28)
PROC: 0DBL8ZZ Excision of Transverse Colon, Via Natural or Artificial Opening Endoscopic (ICD-10-PCS; 2017-03-28)
DX: Q27.33 Arteriovenous malformation of digestive system vessel (principal); J44.0 Chronic obstructive pulmonary disease with (acute) lower respiratory infection; K62.5 Hemorrhage of anus and rectum; E87.0 Hyperosmolality and hypernatremia; J44.1 Chronic obstructive pulmonary disease with (acute) exacerbation; Z88.6 Allergy status to analgesic agent; Z88.8 Allergy status to other drugs, medicaments and biological substances; I10 Essential (primary) hypertension; E03.9 Hypothyroidism, unspecified; Z90.710 Acquired absence of both cervix and uterus; Z82.49 Family history of ischemic heart disease and other diseases of the circulatory system; F17.200 Nicotine dependence, unspecified, uncomplicated; J20.9 Acute bronchitis, unspecified; D64.9 Anemia, unspecified; Z80.0 Family history of malignant neoplasm of digestive organs; F41.9 Anxiety disorder, unspecified
CPT/HCPCS: 36415; 71046; 78452; 80048; 80053; 82550; 82553; 82607; 82747; 83550; 83880; 84484; 85007; 85014; 85018; 85025; 85379; 85610; 86850; 86900; 86901; 86920; 93005; 93010; 93017; 93306; 94640; 96374; 99285; 99406; A9502; C9113; J0360; J0456; J0696; J1650; J2270; J2405; J2704; J2785; J2920; J2930; J7030; J7040; J7050; P9016